=== PATIENT | female | born 1955 | race Caucasian/White ===

== ENCOUNTER 2024-01-22 09:07 | Inpatient (IN) ==
--- NOTE | 2024-01-22 09:36 | Emergency Department Note ---
Impression & Plan Hypoxia, Takotsubo cardiomyopathy, Tachycardia, SOB (shortness of breath), Elevated troponin, Elevated brain natriuretic peptide (BNP) level ED Provider Note NAME: AIDEN AVINA AGE: 69 SEX: F : 1955 ARRIVES VIA: Walk-In INFORMANT: [Patient] ED PROVIDER(S): [Shun Mckenzie MD] CHIEF COMPLAINT: Short of breath HISTORY OF PRESENT ILLNESS: The patient is a 69-year-old female who flew from [place] yesterday. She is here for a . The patient states that last night, she began having some shortness of breath. She became more short of breath as the morning went on and noticed some left pleuritic chest discomfort. The patient has had some burning in her chest for a month. She attributes this to sinus congestion. She states that she would notice it mostly when she would lay down at nighttime. She has had a cough as well. Coughing seemed to make the left chest pain worse today. The patient has a history of an abnormal ECG although, she was told that she never had a heart attack. She has no diagnosed lung disease. No history of PE or DVT. The patient has had pleurisy before and she states that the left chest pain feels similar to her previous pleurisy diagnosis. She tried some Tylenol with minimal relief. PMHx/PSHx/Social Hx: See Below PHYSICAL EXAM: GENERAL: Patient is in mild respiratory distress. HEENT: No acute trauma, normocephalic atraumatic, mucous membranes moist, no nasal congestion. NECK: No stridor, no adenopathy, no meningismus, trachea is midline. LUNGS: Diminished breath sounds bilaterally, especially on the right. She has an increased respiratory rate and does seem in some mild respiratory distress. She does speak in some short sentences. Chest: Nontender chest wall. HEART: Tachycardic, no obvious murmur, regular rhythm. ABDOMEN: Soft, nontender, no peritonitis. EXTREMITIES: No cyanosis, full range of motion of all the joints without pain or difficulty. NEUROLOGIC: Oriented x 3, no acute motor or sensory deficits, no focal weakness. SKIN: No jaundice, no diaphoresis. DIFFERENTIAL DIAGNOSIS: PE, pneumonia, [place], dysrhythmia, pneumothorax, CHF, viral illness, among others. EMERGENCY DEPARTMENT PROCEDURES: MEDICAL DECISION MAKING: There is a mild leukocytosis, this is consistent with potential infection. There was a normal hemoglobin and platelet count. No coagulopathy. No renal failure or significant electrolyte abnormality. Lactic acid level was not elevated making severe sepsis less likely. There were some subtle liver enzyme elevations, the bilirubin was normal. BNP was elevated consistent with fluid overload. Chest x-ray showed what appeared to be a right lower lung infiltrate. ECG showed sinus tachycardia with inverted T waves across the inferior and lateral leads concerning for ischemia although there was no ST elevation. Cardiac troponin testing was elevated at over 2000. This troponin elevation is certainly consistent with cardiac injury. Chest CT did not show PE, there were some small pleural effusions seen. There was concerns for CHF. Cardiac echo showed findings of Takotsubo cardiomyopathy. EF was around 30%. The patient presented hypoxic. She was tachycardic. She was aggressively managed. I was initially concerned for pneumonia given her presentation and x- ray findings. The patient was given IV saline, she received a total of 700 cc. She had been ordered for 1 L however, I had the fluid stopped at around 700cc once the concerns for CHF were noted. The patient was given IV cefepime as antibiotic coverage. She was given IV Toradol and IV Zofran. She eventually received 1 inch of nitroglycerin paste. She was given 20 mg of IV Lasix to help with diuresis. She received a DuoNeb. The patient is still requiring supplemental O2. She did feel better after her DuoNeb. It does appear that the findings of Takotsubo cardiomyopathy explains the majority of her presentation. Certainly, pneumonia/bronchitis given her respiratory complaints is an additional concern. I spoke with the patient and her . I spoke with on-call cardiology, I did speak with case management. The on-call hospitalist was consulted. Admission is clearly warranted. Prior/Outside records/notes reviewed: None ECG per my interpretation: Indication was shortness of breath. The ECG shows a sinus tachycardia with a rate of 117. 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 There are inverted T waves seen across the inferior and lateral leads. There is no ST elevation. No PVCs. The QTc is 488. Continuous Cardiac Monitoring per my interpretation: An order was placed for continuous cardiac monitoring. The monitor shows a rate of 116 with sinus tachycardia. Imaging/x-ray results per my interpretation: Chest x-ray shows a right lower lung consolidation consistent with possible pneumonia. There was no pneumothorax. Chronic Medical/Social conditions affecting care: History of previous abnormal ECG as well as diagnosis of pleurisy. Care/Management discussed with: Cardiology on-call-Dr. Abreu. Case management and the on-call hospitalist. Level of care consideration(s): After review of the information above and other included data: --I believe the patient requires escalation of care to admission Critical Care Note: I have personally spent 63 minutes of critical care time in the direct management of this patient. This includes bedside care, interpretation of diagnostic studies, and testing, discussion with consultants, patient, and family members, and other required patient management activities. This 63 minutes is in excess of all separately billable procedures. DISPOSITION: Admission Past Med/Surg History Problem List (Updated 01/22/24 @ 14:22 by Shun Mckenzie MD) Elevated brain natriuretic peptide (BNP) level (Acute) Elevated troponin (Acute) SOB (shortness of breath) (Acute) Tachycardia (Acute) Takotsubo cardiomyopathy (Acute) Hypoxia (Acute) Heart failure Pneumonia Takotsubo cardiomyopathy Acute hypoxic respiratory failure Medical History Hypertension Social History Smoking Status: Current every day smoker Tobacco Type: Cigarettes Feels Safe at Home: Yes Home Meds Home Medications Medication Instructions Recorded Confirmed amlodipine 2.5 mg tablet 2.5 mg PO DAILY 01/22/24 01/22/24 celecoxib 200 mg capsule 200 mg PO DAILY 01/22/24 01/22/24 Results & Data (ED) Vital Signs Vital Signs - 24 hr 01/22/24 09:08 01/22/24 09:15 01/22/24 09:19 Temperature 36.5 C Temperature Source Temporal Artery Scan Pulse Rate 114 H Pulse Rate [Apical] Respiratory Rate 18 Respiratory Effort / Characteristics Spontaneous Short of Breath Non-Labored Spontaneous Respiratory Depth Shallow Normal Blood Pressure 145/88 H Blood Pressure [Right Arm] Blood Pressure Mean 107 Blood Pressure Mean [Right Arm] Pulse Oximetry 87 L Oxygen Delivery Method Nasal Cannula Room Air Room Air Oxygen Flow Rate 2 Sepsis Recent Fever Within 48 Hours No Sepsis New/Unexplained Change in Mental Status No Sepsis Action Taken by Nursing No Action Required 08/17/24 09:24 01/22/24 09:33 01/22/24 09:46 Temperature Temperature Source Pulse Rate 118 H 113 H 107 H Pulse Rate [Apical] Respiratory Rate 23 29 H Respiratory Effort / Characteristics Respiratory Depth Blood Pressure Blood Pressure [Right Arm] Blood Pressure Mean Blood Pressure Mean [Right Arm] Pulse Oximetry Oxygen Delivery Method Oxygen Flow Rate Sepsis Recent Fever Within 48 Hours Sepsis New/Unexplained Change in Mental Status Sepsis Action Taken by Nursing 01/22/24 09:51 01/22/24 10:16 01/22/24 10:30 Temperature Temperature Source Pulse Rate 107 H 98 H Pulse Rate [Apical] Respiratory Rate 26 H 16 Respiratory Effort / Characteristics Respiratory Depth Blood Pressure 146/105 H 133/90 Blood Pressure [Right Arm] Blood Pressure Mean 127 104 Blood Pressure Mean [Right Arm] Pulse Oximetry 99 Oxygen Delivery Method Oxygen Flow Rate Sepsis Recent Fever Within 48 Hours Sepsis New/Unexplained Change in Mental Status Sepsis Action Taken by Nursing 01/22/24 11:08 Temperature Temperature Source Pulse Rate Pulse Rate [Apical] 105 H Respiratory Rate 18 Respiratory Effort / Characteristics Non-Labored Spontaneous Respiratory Depth Normal Blood Pressure Blood Pressure [Right Arm] 136/89 Blood Pressure Mean Blood Pressure Mean [Right Arm] 104 Pulse Oximetry 93 Oxygen Delivery Method Oxymask Oxygen Flow Rate 6 Sepsis Recent Fever Within 48 Hours Sepsis New/Unexplained Change in Mental Status Sepsis Action Taken by Long Term Medications Current Medication List: was personally reviewed by me Laboratory Data Attestation: I reviewed the patient's lab results. 01/22/24 09:56 01/22/24 09:56 Lab Results 01/22/24 01/22/24 01/22/24 Range/Units 09:51 09:56 09:59 WBC 12.73 H (4.8-10.8) K/ul RBC 4.35 (4.20-5.40) M/uL Hgb 14.9 (12.0-16.0) g/dl POC Hgb 15.6 (12.0-16.0) g/dl Hct 42.9 (37.0-47.0) % POC Hct 46 (37-47) % MCV 98.6 (80.0-100.0) fL MCH 34.3 H (25.0-34.0) pg MCHC 34.7 (32.0-36.0) g/dL RDW Std Deviation 45.8 (36.4-46.3) fL RDW Coeff of Shira 12.6 (11.5-14.5) % Plt Count 187 (130-400) K/uL MPV 12.1 (9.4-12.4) fL Immature Gran % (Auto) 0.3 % Neut % (Auto) 82.0 % Lymph % (Auto) 10.7 % [place] % (Auto) 6.1 % Eos % (Auto) 0.4 % Baso % (Auto) 0.5 % Neut # (Auto) 10.43 H (1.40-6.50) K/uL Lymph # (Auto) 1.36 (1.20-3.40) K/uL [place] # (Auto) 0.78 H (0.11-0.59) K/uL Eos # (Auto) 0.05 (0.00-0.50) K/uL Baso # (Auto) 0.07 (0.00-0.20) K/uL Immature Gran # (Auto) 0.04 (0.01-0.20) K/uL PT 10.2 (9.0-12.0) Seconds INR 0.9 (0.9-1.1) APTT 23 (21-31) Seconds PTT Ratio 0.9 POC Sodium 141 (135-144) mmol/L Sodium 140 (136-145) mmol/L POC Potassium 3.7 (3.3-5.0) mmol/L Potassium 3.8 (3.5-5.1) mmol/L POC Chloride 107 (101-112) mmol/L Chloride 106 (98-107) mmol/L Carbon Dioxide 24 (21-32) mmol/L POC Total CO2 23 L (24-31) mmol/L Anion Gap 10 (3-11) POC Anion Gap 16.0 (16-25) mmol/L POC BUN 13 (7-18) mg/dl BUN 14 (6-23) mg/dl Creatinine 0.52 L (0.6-1.2) mg/dl POC Creatinine 0.5 L (0.6-1.3) mg/dl Est Cr Clr Drug Dosing 92.5 ml/min Est GFR ( Amer) 114.6 ml/min Est GFR (Non-Af Amer) 98.9 ml/min BUN/Creatinine Ratio 26.9 H (10-20) Glucose 136 H (70-99(Fasting)) mg/dl POC Glucose (other) 134 H (70-99) mg/dl Lactate 1.9 (0.4-2.0) mmol/L Calcium 9.3 (8.6-10.3) mg/dl POC Ioniz Calcium Em[place] 1.12 (1.12-1.32) mmol/l Magnesium 1.9 (1.7-2.4) mg/dl Total Bilirubin 0.7 (0.2-1.0) mg/dl AST 86 H (13-39) U/L ALT 65 H (7-52) U/L Alkaline Phosphatase 97 (34-104) U/L Troponin I High Sens 2695.3 H* (0-14) pg/ml B-Natriuretic Peptide 1115 H (0-100) pg/ml Total Protein 7.3 (6.0-8.3) gm/dl Albumin 4.9 (3.4-5.0) gm/dl Globulin 2.4 L (2.5-4.0) gm/dl Albumin/Globulin Ratio 2.0 (0.9-2) Adenovirus (PCR) Not Detected (NotDetected) B. pertussis DNA (PCR) Not Detected (NotDetected) B.parapertussis DNA PCR Not Detected (NotDetected) C. pneumoniae DNA (PCR) Not Detected (NotDetected) Coronavirus OC43 (PCR) Not Detected (NotDetected) Coronavirus HKU1 (PCR) Not Detected (NotDetected) Coronavirus 229E (PCR) Not Detected (NotDetected) SARS-CoV-2 (PCR) Not Detected (NotDetected) Coronavirus NL63 (PCR) Not Detected (NotDetected) Human Metapneumovir PCR Not Detected (NotDetected) Influenza Type A (PCR) Not Detected (NotDetected) Influenza Type B (PCR) Not Detected (NotDetected) M. pneumoniae (PCR) Not Detected (NotDetected) Parainfluenza 1 (PCR) Not Detected (NotDetected) Parainfluenza 2 (PCR) Not Detected (NotDetected) Parainfluenza 3 (PCR) Not Detected (NotDetected) Parainfluenza 4 (PCR) Not Detected (NotDetected) RSV (PCR) Not Detected (NotDetected) Entero/Rhino (PCR) Not Detected (NotDetected) 01/22/24 Range/Units 12:02 WBC (4.8-10.8) K/ul RBC (4.20-5.40) M/uL Hgb (12.0-16.0) g/dl POC Hgb (12.0-16.0) g/dl Hct (37.0-47.0) % POC Hct (37-47) % MCV (80.0-100.0) fL MCH (25.0-34.0) pg MCHC (32.0-36.0) g/dL RDW Std Deviation (36.4-46.3) fL RDW Coeff of Shira (11.5-14.5) % Plt Count (130-400) K/uL MPV (9.4-12.4) fL Immature Gran % (Auto) % Neut % (Auto) % Lymph % (Auto) % [place] % (Auto) % Eos % (Auto) % Baso % (Auto) % Neut # (Auto) (1.40-6.50) K/uL Lymph # (Auto) (1.20-3.40) K/uL [place] # (Auto) (0.11-0.59) K/uL Eos # (Auto) (0.00-0.50) K/uL Baso # (Auto) (0.00-0.20) K/uL Immature Gran # (Auto) (0.01-0.20) K/uL PT (9.0-12.0) Seconds INR (0.9-1.1) APTT (21-31) Seconds PTT Ratio POC Sodium (135-144) mmol/L Sodium (136-145) mmol/L POC Potassium (3.3-5.0) mmol/L Potassium (3.5-5.1) mmol/L POC Chloride (101-112) mmol/L Chloride (98-107) mmol/L Carbon Dioxide (21-32) mmol/L POC Total CO2 (24-31) mmol/L Anion Gap (3-11) POC Anion Gap (16-25) mmol/L POC BUN (7-18) mg/dl BUN (6-23) mg/dl Creatinine (0.6-1.2) mg/dl POC Creatinine (0.6-1.3) mg/dl Est Cr Clr Drug Dosing ml/min Est GFR ( Amer) ml/min Est GFR (Non-Af Amer) ml/min BUN/Creatinine Ratio (10-20) Glucose (70-99(Fasting)) mg/dl POC Glucose (other) (70-99) mg/dl Lactate (0.4-2.0) mmol/L Calcium (8.6-10.3) mg/dl POC Ioniz Calcium [place] (1.12-1.32) mmol/l Magnesium (1.7-2.4) mg/dl Total Bilirubin (0.2-1.0) mg/dl AST (13-39) U/L ALT (7-52) U/L Alkaline Phosphatase (34-104) U/L Troponin I High Sens 3776.9 H* D (0-14) pg/ml B-Natriuretic Peptide (0-100) pg/ml Total Protein (6.0-8.3) gm/dl Albumin (3.4-5.0) gm/dl Globulin (2.5-4.0) gm/dl Albumin/Globulin Ratio (0.9-2) Adenovirus (PCR) (NotDetected) B. pertussis DNA (PCR) (NotDetected) B.parapertussis DNA PCR (NotDetected) C. pneumoniae DNA (PCR) (NotDetected) Coronavirus OC43 (PCR) (NotDetected) Coronavirus HKU1 (PCR) (NotDetected) Coronavirus 229E (PCR) (NotDetected) SARS-CoV-2 (PCR) (NotDetected) Coronavirus NL63 (PCR) (NotDetected) Human Metapneumovir PCR (NotDetected) Influenza Type A (PCR) (NotDetected) Influenza Type B (PCR) (NotDetected) M. pneumoniae (PCR) (NotDetected) Parainfluenza 1 (PCR) (NotDetected) Parainfluenza 2 (PCR) (NotDetected) Parainfluenza 3 (PCR) (NotDetected) Parainfluenza 4 (PCR) (NotDetected) RSV (PCR) (NotDetected) Entero/Rhino (PCR) (NotDetected) Administered Medications Heparin Sodium/Dextrose (Heparin Sodium/Dextrose) 25,000 units in 500 mls @ 13 mls/hr IV .Q24H [facility] [place]; Protocol Stop: 02/21/24 13:44 Last Admin: 01/22/24 13:49 Dose: 650 units/hr, 13 mls/hr Documented By: MTN Co-signed By: KAYLA Discontinued Medications Albuterol (Albut/Ipratrop 3mg/0.5mg Neb 3 Ml Vial) 3 ml NEB NOW STA; Protocol Stop: 01/22/24 09:32 Last Admin: 01/22/24 10:26 Dose: 3 ml Documented By: CEF Aspirin (Aspirin Chew 324 Mg) 324 mg PO NOW STA Stop: 01/22/24 11:45 Last Admin: 01/22/24 11:55 Dose: 324 mg Documented By: MH Furosemide (Furosemide Inj 20 Mg/2 Ml Vial) 20 mg IV ONE ONE Stop: 01/22/24 10:55 Last Admin: 01/22/24 11:02 Dose: 20 mg Documented By: CEF Heparin Sodium (Porcine) (Heparin Sod (Porcine) 1000 Unit/Ml) 3,000 units IV NOW ONE Stop: 01/22/24 13:46 Last Admin: 01/22/24 13:49 Dose: 3,000 units Documented By: JESSE Co-signed By: KAYLA Sodium Chloride (Nss) 1,000 mls @ 999 mls/hr IV .Q1H1M ONE Stop: 01/22/24 10:38 Last Infusion: 01/22/24 10:54 Dose: Infused Documented By: Admin: 01/22/24 10:24 Dose: 999 mls/hr Documented By: CEF Cefepime HCl (Maxipime) 2,000 mg in 20 mls @ 5 mls/min IV NOW STA; Protocol Stop: 01/22/24 09:42 Last Admin: 01/22/24 10:20 Dose: 5 mls/min Documented By: CEF Ioversol (Optiray 320 125ml) 118 ml IV ONCE ONE Stop: 01/22/24 10:09 Last Admin: 01/22/24 10:09 Dose: 118 ml Documented By: RUBINA Ketorolac Tromethamine (Ketorolac Tromethamine 15 Mg/Ml Vial) 15 mg IV NOW STA Stop: 01/22/24 10:13 Last Admin: 01/22/24 10:28 Dose: 15 mg Documented By: CEF Nitroglycerin (Nitroglycerin 2% Ointment 30gm Tube) 1 inch EXT NOW STA Stop: 01/22/24 10:55 Last Admin: 01/22/24 11:00 Dose: 1 inch Documented By: CEF Ondansetron HCl (Ondansetron Inj 2 Mg/Ml 2 Ml Vial) 4 mg IV NOW STA Stop: 01/22/24 09:32 Last Admin: 01/22/24 10:15 Dose: 4 mg Documented By: CEF Imaging Data Radiologist's Impression: Chest X-Ray 01/22/24 09:19 SINGLE VIEW CHEST CLINICAL HISTORY: Dyspnea FINDINGS: An AP, portable, upright chest radiograph is obtained. No prior studies are available for comparison at the time of dictation. The heart is enlarged noting atherosclerotic calcification of the thoracic aorta. There is pulmonary vascular congestion. There are small pleural effusions with dependent atelectasis. Emphysematous change is noted. No pneumothorax is seen. The bony thorax is grossly intact. A left shoulder arthroplasty is in place. IMPRESSION: 1. Cardiomegaly with evidence of congestive failure. 2. Small pleural effusions. 3. Emphysema. ACT 112: Negative or not required by law. Electronically signed by: Shun Wilkinson M.D. 01/22/2024 10:41 AM Chest CTA 01/22/24 09:31 CT ANGIOGRAM OF THE CHEST CLINICAL HISTORY: Dyspnea COMPARISON STUDY: Chest x-ray dated 01/22/2024. TECHNIQUE: Following the IV administration of 118 cc of Optiray 320, CT angiogram of the chest was performed from the upper abdomen to the thoracic inlet utilizing the pulmonary embolus protocol. Images are reviewed in the axial, sagittal, and coronal planes. 3-D MIPS images are created and assessed. IV contrast was administered without complication. A dose lowering technique was utilized adhering to the principles of ALARA. CT DOSE: 518.68 mGy.cm FINDINGS: Thyroid: Imaged portions of the thyroid gland are normal in size and attenuation. Thoracic aorta: There is atherosclerotic calcification of the thoracic aorta, which is normal in caliber and demonstrates standard 3-vessel arch anatomy. The thoracic aorta is not well-opacified. Pulmonary vasculature: The pulmonary trunk is normal in caliber. There are no filling defects identified in main, lobar, or segmental pulmonary branches to suggest pulmonary embolus. Heart: The heart is mildly enlarged and without pericardial effusion. There is coronary artery atherosclerosis. Lungs and pleural spaces: Evaluation of the lung parenchyma is degraded by motion artifact. Moderate emphysematous change is noted. Diffuse intralobular septal thickening indicates fluid overload/congestive change. There are small pleural effusions with dependent atelectasis. Patchy groundglass opacities likely represent mild pulmonary edema. Mediastinum: There is no mediastinal lymphadenopathy. Monica: Clear. Axillae: There is no axillary lymphadenopathy. Upper abdomen: Inframalleolar nonobstructing calculus is in the upper pole of the left kidney. Partially visualized upper abdominal viscera is otherwise within normal limits. Skeletal structures: The skeletal structures are osteopenic. Degenerative change and hyperkyphosis is noted in the thoracic spine. Arthritic change is seen in the right shoulder. A left shoulder arthroplasty is in place. No lytic or blastic bony lesions are seen. IMPRESSION: 1. There is no evidence of pulmonary embolus in the main, lobar, or segmental pulmonary arteries. 2. Cardiomegaly with evidence of congestive failure and mild pulmonary edema. Radiographic follow-up to resolution is recommended. 3. Emphysema. 4. Small pleural effusions. 5. Left-sided nephrolithiasis. 6. Additional findings as above. ACT 112: Negative or not required by law. Electronically signed by: Shun Wilkinson M.D. 01/22/2024 10:42 AM Discharge Plan Visit Data Chief Complaint: Cardiac Assessment Stated Complaint: SHORTNESS OF BREATH, CHEST PAIN ED Provider: Shun Mckenzie Discharge Problem: Hypoxia, Takotsubo cardiomyopathy, Tachycardia, SOB (shortness of breath), Elevated troponin, Elevated brain natriuretic peptide (BNP) level Patient Disposition: Admitted As Inpatient Condition: Serious Discharge Instructions Interventions: ED Discharge Assessment Last Done: 01/22/24 12:51
[2024-01-22 10:08] LABS: iSTAT Creatinine 0.5 mg/dl (0.6-1.3); iSTAT Hemoglobin 15.6 g/dl (12.0-16.0); iSTAT Ionized Calcium 1.12 mmol/l (1.12-1.32); iSTAT Potassium 3.7 mmol/L (3.3-5.0)
[2024-01-22] MEDS: OPTIRAY 320 125ml IV ONE (10:09)
[2024-01-22 10:13] LABS: Basophils # (auto) 0.07 K/uL (0.00-0.20); Basophils % (auto) 0.5 %; Eosinophils # (auto) 0.05 K/uL (0.00-0.50); Eosinophils % (auto) 0.4 %; Hematocrit (blood only) 42.9 % (37.0-47.0); Hemoglobin 14.9 g/dl (12.0-16.0); Immature Granulocytes # (auto) 0.04 K/uL (0.01-0.20); Immature Granulocytes % (auto) 0.3 %; Lymphocytes # (auto) 1.36 K/uL (1.20-3.40); Lymphocytes % (auto) 10.7 %; Mean Corpuscular Hemoglobin 34.3 pg (25.0-34.0); Mean Corpuscular Hgb Conc 34.7 g/dL (32.0-36.0); Mean Corpuscular Volume 98.6 fL (80.0-100.0); Mean Platelet Volume 12.1 fL (9.4-12.4); Monocytes # (auto) 0.78 K/uL (0.11-0.59); Monocytes % (auto) 6.1 %; Neutrophils # (auto) 10.43 K/uL (1.40-6.50); Platelet Count 187 K/uL (130-400); RDW Coefficient of Variation 12.6 % (11.5-14.5); RDW Standard Deviation 45.8 fL (36.4-46.3); Red Blood Count 4.35 M/uL (4.20-5.40); White Blood Count 12.73 K/ul (4.8-10.8)
[2024-01-22] MEDS: ONDANSETRON INJ 2 MG/ML 2 ML VIAL IV STA (10:15)
[2024-01-22] MEDS: CEFEPIME 2,000 MG/20 ML VIAL IV STA (10:20)
[2024-01-22] MEDS: SODIUM CHLORIDE 0.9% 1,000 ML IV ONE (10:24)
[2024-01-22] MEDS: ALBUT/IPRATROP 3MG/0.5MG NEB 3 ML VIAL NEB STA (10:26)
[2024-01-22] MEDS: KETOROLAC TROMETHAMINE 15 MG/ML VIAL IV STA (10:28)
[2024-01-22 10:30] LABS: Albumin Level 4.9 gm/dl (3.4-5.0); BUN Creatinine Ratio 26.9 (10-20); Bilirubin,Total 0.7 mg/dl (0.2-1.0); Calcium 9.3 mg/dl (8.6-10.3); Creatinine Clr Calc Pharmacy 92.5 ml/min; Est GFR (African American) 114.6 ml/min; Est GFR (Non-African American) 98.9 ml/min; Globulin 2.4 gm/dl (2.5-4.0); Magnesium 1.9 mg/dl (1.7-2.4); Potassium 3.8 mmol/L (3.5-5.1); Total Protein 7.3 gm/dl (6.0-8.3)
[2024-01-22 10:39] LABS: INR 0.9 (0.9-1.1); Partial Thromboplastin Ratio 0.9; Partial Thromboplastin Time 23 Seconds (21-31); Prothrombin Time 10.2 Seconds (9.0-12.0)
--- NOTE | 2024-01-22 10:43 | CT Scan Report ---
CT ANGIOGRAM OF THE CHEST CLINICAL HISTORY: Dyspnea COMPARISON STUDY: Chest x-ray dated 01/22/2024. TECHNIQUE: Following the IV administration of 118 cc of Optiray 320, CT angiogram of the chest was pe rformed from the upper abdomen to the thoracic inlet utilizing the pulmonary embolus protocol. Images are reviewed in the axial, sagittal, and coronal planes. 3-D MIPS images are created and assessed. I V contrast was administered without complication. A dose lowering technique was utilized adhering to the principles of ALARA. CT DOSE: 518.68 mGy.cm FINDINGS: Thyroid: Imaged portions of the thyroid gland are normal in size and attenuation. Thoracic aorta: There is atherosclerotic calcification of the thoracic aorta, which is normal in taz elza and demonstrates standard 3-vessel arch anatomy. The thoracic aorta is not well-opacified. Pulmonary vasculature: The pulmonary trunk is normal in caliber. There are no filling defects identif ied in main, lobar, or segmental pulmonary branches to suggest pulmonary embolus. Heart: The heart is mildly enlarged and without pericardial effusion. There is coronary artery athero sclerosis. Lungs and pleural spaces: Evaluation of the lung parenchyma is degraded by motion artifact. Moderate emphysematous change is noted. Diffuse intralobular septal thickening indicates fluid overload/conges tive change. There are small pleural effusions with dependent atelectasis. Patchy groundglass opaciti es likely represent mild pulmonary edema. Mediastinum: There is no mediastinal lymphadenopathy. Monica: Clear. Axillae: There is no axillary lymphadenopathy. Upper abdomen: Inframalleolar nonobstructing calculus is in the upper pole of the left kidney. Partia lly visualized upper abdominal viscera is otherwise within normal limits. Skeletal structures: The skeletal structures are osteopenic. Degenerative change and hyperkyphosis is noted in the thoracic spine. Arthritic change is seen in the right shoulder. A left shoulder arthrop lasty is in place. No lytic or blastic bony lesions are seen. IMPRESSION: 1. There is no evidence of pulmonary embolus in the main, lobar, or segmental pulmonary arteries. 2. Cardiomegaly with evidence of congestive failure and mild pulmonary edema. Radiographic follow-up to resolution is recommended. 3. Emphysema. 4. Small pleural effusions. 5. Left-sided nephrolithiasis. 6. Additional findings as above. ACT 112: Negative or not required by law. Electronically signed by: Shun Wilkinson M.D. 01/22/2024 10:42 AM
--- NOTE | 2024-01-22 10:43 | XRay Report ---
SINGLE VIEW CHEST CLINICAL HISTORY: Dyspnea FINDINGS: An AP, portable, upright chest radiograph is obtained. No prior studies are available for c omparison at the time of dictation. The heart is enlarged noting atherosclerotic calcification of the thoracic aorta. There is pulmonary vascular congestion. There are small pleural effusions with depen dent atelectasis. Emphysematous change is noted. No pneumothorax is seen. The bony thorax is grossly intact. A left shoulder arthroplasty is in place. IMPRESSION: 1. Cardiomegaly with evidence of congestive failure. 2. Small pleural effusions. 3. Emphysema. ACT 112: Negative or not required by law. Electronically signed by: Shun Wilkinson M.D. 01/22/2024 10:41 AM
[2024-01-22 10:54] LABS: Adenovirus PCR Not Detected (NotDetected); Bordetella parapertussis PCR Not Detected (NotDetected); Bordetella pertussis PCR Not Detected (NotDetected); Chlamydia pneumoniae PCR Not Detected (NotDetected); Coronavirus 229E PCR Not Detected (NotDetected); Coronavirus CoV-2 (COVID19)PCR Not Detected (NotDetected); Coronavirus HKU1 PCR Not Detected (NotDetected); Coronavirus NL63 PCR Not Detected (NotDetected); Coronavirus OC43PCR Not Detected (NotDetected); Human Metapneumovirus PCR Not Detected (NotDetected); Influenza A PCR Not Detected (NotDetected); Influenza B PCR Not Detected (NotDetected); Mycoplasma pneumoniae PCR Not Detected (NotDetected); Parainfluenza Virus 1 PCR Not Detected (NotDetected); Parainfluenza Virus 2 PCR Not Detected (NotDetected); Parainfluenza Virus 3 PCR Not Detected (NotDetected); Parainfluenza Virus 4 PCR Not Detected (NotDetected); Respiratory Syncytial VirusPCR Not Detected (NotDetected); Rhinovirus/Enterovirus PCR Not Detected (NotDetected)
--- NOTE | 2024-01-22 10:58 | History & Physical Report ---
Date of Service January 22, 2024 Assessment & Plan (1) Takotsubo cardiomyopathy: Plan: Acute onset of SOB at rest, pleuritic CP, productive cough, and orthopnea on the evening of 01/20 Patient is from [place], [place]; currently visiting for her sister's ; flew in on 01/20 Chest CTA without acute pulmonary embolism Troponin 2695 on arrival, repeat pending; trend q6h to peak Aspirin 324mg and Nitropaste given in the ED Overall, patient paints a picture of both infectious etiology + acute heart failure DDx at this time includes Takotsubo's cardiomyopathy, pericarditis, ACS, ischemic event, acute CHF, ACS, and pneumonia (among other etiologies) While pericarditis is still in the differential, will defer NSAIDs until ischemic event is ruled out Cardiology consulted If patient's troponin continues to trend up, will need to consider IV heparin Continuous telemetry monitoring A.m. CBC, CMP, fasting lipid panel (2) Heart failure: Plan: BNP 1115 on arrival No prior history of heart failure to patient's knowledge Chest CTA shows evidence of congestive failure and pulmonary edema Echocardiogram ordered, pending Strict I&O monitoring Heart healthy, low-sodium diet (1800 mL fluid restriction) Started on Lasix 40 mg IV QAM (3) Acute hypoxic respiratory failure: Plan: Patient's SpO2 dropped to 87% on RA Suspect secondary to #2 Titrate supplemental oxygen as needed to maintain SpO2 >94% Continuous pulse oximetry (4) Pneumonia: Plan: Productive cough began the evening of 01/20 Leukocytosis at 12.73 with a neutrophil predominance CXR may exhibit infiltrate on the RLL BioFire negative Procalcitonin ordered, pending Sputum culture ordered, pending Blood cultures drawn Cefepime x 1 in the ED Rocephin 2000 mg IV q24h Azithromycin 500 mg IV q24h Continuous pulse oximetry Plan Disposition: Admit to PCU telemetry Full code Heart healthy, low-sodium diet (1800 mL fluid restriction) VTE PPx: Heparin IV low-dose with bolus History of Present Illness Chief Complaint: Cardiac Assessment Primary Care Provider: NO PCP Ailin is a 69-year-old female with PMH of right shoulder replacement. She presented for SOB that began the evening of 01/20. She had a 2-hour flight yesterday and reports that her "sinuses are a mess", and that she lives in [facility]. She is here for her sister's . Patient developed acute onset of shortness of breath last night while laying in bed around midnight. She experienced SOB both at rest and with exertion. SOB was worse when she lay flat on her back. Alleviated by standing up and leaning forward. Patient has had sinus congestion over the past month, and reports that last night she felt like her bronchial tubes were "on fire". No history of heart failure to her knowledge. While she denies chest pain at this time, she does endorse pleuritic chest pain and reports it hurts to cough. She also endorses left lower rib pain, which is reproducible on palpation and she attributes it to the cough. She did started develop diarrhea last night; no blood in her stool. The stool is somewhat formed; not liquidy. She is still producing urine. She has new onset lower back pain x 2 weeks. No sick contacts. No supplemental oxygen at baseline. No CPAP at night. She is a current everyday tobacco cigarette smoker; 0.5 PPD. She declines nicotine patch on admission. No history of COPD, asthma, or emphysema to her knowledge. She does endorse daily alcohol use; 2 glasses of wine per day. No history of alcohol withdrawal or seizures. No PMH of UT, DVT/PE, stroke, or diabetes. The only medication she takes on the basis is amlodipine for blood pressure, and occasionally Celebrex for her shoulder. Patient does believe that she had an EKG change while at home in [place], but it is unclear why this was called an abnormal EKG; patient's PCP might of mentioned that she had a heart attack in the past. She follows with Sand[facility]. Regarding her penicillin allergy, she is unsure what happens when she takes penicillins; she denies history of anaphylaxis, hives, or throat closure; she believes it might have led to a rash and some arm swelling. Patient is tachycardic around 105 bpm on admission; SpO2 93% on 6L Oxymask. ED Course: Duoneb 3mL Zofran 4mg IV NSS 1000mL IV Cefepime 2000mg IV Toradol 15mg IV Nitro-Bid 2% ext Furosemide 20mg IV ROS: Patient endorses acute onset of SOB at rest and with exertion, chest palpitations (which patient associated with difficulty breathing), productive cough (green phlegm), generalized weakness, sinus congestion, orthopnea, nausea, diarrhea (which started last night), and new lower back pain x 2 weeks. Patient denies fever, chills, night-sweats, dizziness, lightheadedness, MUNIZ, vomiting, neck stiffness/pain, photophobia, changes in vision, chest pain/pressure/tightness, hemoptysis, abdominal pain, vomiting, blood in the urine/stool, dysuria, changes in urinary production, or numbness/tingling in the arms or legs. Allergies Allergy/AdvReac Type Severity Reaction Status Date / Time Penicillins Allergy Unknown Unknown Verified 01/22/24 15:18 Home Medications Medication Instructions Recorded Confirmed Type amlodipine 2.5 mg tablet 2.5 mg PO DAILY 01/22/24 01/22/24 History celecoxib 200 mg capsule 200 mg PO DAILY 01/22/24 01/22/24 History Past Med/Surg History Problem List (Updated 01/22/24 @ 15:43 by Lester Abreu MD) Moderate to severe mitral regurgitation COPD (chronic obstructive pulmonary disease) Acute HFrEF (heart failure with reduced ejection fraction) Elevated brain natriuretic peptide (BNP) level (Acute) Elevated troponin (Acute) SOB (shortness of breath) (Acute) Tachycardia (Acute) Takotsubo cardiomyopathy (Acute) Hypoxia (Acute) Heart failure Pneumonia Takotsubo cardiomyopathy Acute hypoxic respiratory failure Medical History Hypertension Social History Smoking Status: Current every day smoker Tobacco Type: Cigarettes Do You Dip or Chew Tobacco: No; Hx Alcohol Use: Yes Alcohol type: wine Hx Substance Use: No Preferred Language: Polish Communication Ability: Effective 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 Beliefs That Will Affect Care: None and Amish Current Living Situation: Spouse Feels Safe at Home: Yes Assistive Devices: Glasses Review of Systems Review of Systems: See HPI above Physical Exam Physical Exam: General: Mild respiratory distress; anxious; non-toxic appearing; well- nourished; cooperative; SpO2 94% on 4L oxy mask HEENT: normocephalic, atraumatic; no scleral icterus; PERRLA w/ EOMs intact; vision and hearing grossly intact Neck: supple; no lymphadenopathy; trachea midline; +JVP Skin: warm, dry without signs of tenting; no cyanosis; no rashes, bruising, les ions, or erythema noted CV: Mild pain to palpation of the left lower rib cage; RR, tachycardic around 100 bpm; S1/S2 normal; no murmurs/rubs/gallops; pulses intact and symmetric at radial, DP, and PT Lungs: Mild respiratory distress; symmetrical chest wall expansion; bibasilar crackles in the lower lung rae bilaterally; no wheezing ABD: Soft, NTP; BS present; no rebound/guarding; no distention; negative CVA tenderness MSK: no tics or fasciculations; no edema noted in the LEs b/l, nonerythematous Neuro: A&Ox3; normal mood and affect; fluent speech; no focal deficits; sensation grossly intact in the LEs b/l Results & Data Results & Data Vital Signs (Past 12 Hours) Vital Signs Temp Pulse Resp BP Pulse Ox O2 Del Method O2 Flow Rate 01/22/24 10:30 98 H 16 133/90 99 01/22/24 10:16 146/105 H 01/22/24 09:51 107 H 26 H 01/22/24 09:46 107 H 01/22/24 09:33 113 H 29 H 01/22/24 09:24 118 H 23 01/22/24 09:19 Room Air 01/22/24 09:15 36.5 C 114 H 18 145/88 H 87 L Room Air 01/22/24 09:08 Nasal Cannula 2 Laboratory Results Abnormal lab results 01/22/24 01/22/24 Range/Units 09:51 09:56 WBC 12.73 H (4.8-10.8) K/ul MCH 34.3 H (25.0-34.0) pg Neut # (Auto) 10.43 H (1.40-6.50) K/uL [place] # (Auto) 0.78 H (0.11-0.59) K/uL POC Total CO2 23 L (24-31) mmol/L Creatinine 0.52 L (0.6-1.2) mg/dl POC Creatinine 0.5 L (0.6-1.3) mg/dl BUN/Creatinine Ratio 26.9 H (10-20) Glucose 136 H (70-99(Fasting)) mg/dl POC Glucose (other) 134 H (70-99) mg/dl AST 86 H (13-39) U/L ALT 65 H (7-52) U/L Globulin 2.4 L (2.5-4.0) gm/dl Diagnostic Findings Chest X-Ray 01/22/24 09:19 SINGLE VIEW CHEST CLINICAL HISTORY: Dyspnea FINDINGS: An AP, portable, upright chest radiograph is obtained. No prior studies are available for comparison at the time of dictation. The heart is enlarged noting atherosclerotic calcification of the thoracic aorta. There is pulmonary vascular congestion. There are small pleural effusions with dependent atelectasis. Emphysematous change is noted. No pneumothorax is seen. The bony thorax is grossly intact. A left shoulder arthroplasty is in place. IMPRESSION: 1. Cardiomegaly with evidence of congestive failure. 2. Small pleural effusions. 3. Emphysema. ACT 112: Negative or not required by law. Electronically signed by: Shun Wilkinson M.D. 01/22/2024 10:41 AM Chest CTA 01/22/24 09:31 CT ANGIOGRAM OF THE CHEST CLINICAL HISTORY: Dyspnea COMPARISON STUDY: Chest x-ray dated 01/22/2024. TECHNIQUE: Following the IV administration of 118 cc of Optiray 320, CT angiogram of the chest was performed from the upper abdomen to the thoracic inlet utilizing the pulmonary embolus protocol. Images are reviewed in the axial, sagittal, and coronal planes. 3-D MIPS images are created and assessed. IV contrast was administered without complication. A dose lowering technique was utilized adhering to the principles of ALARA. CT DOSE: 518.68 mGy.cm FINDINGS: Thyroid: Imaged portions of the thyroid gland are normal in size and attenuation. Thoracic aorta: There is atherosclerotic calcification of the thoracic aorta, which is normal in caliber and demonstrates standard 3-vessel arch anatomy. The thoracic aorta is not well-opacified. Pulmonary vasculature: The pulmonary trunk is normal in caliber. There are no filling defects identified in main, lobar, or segmental pulmonary branches to suggest pulmonary embolus. Heart: The heart is mildly enlarged and without pericardial effusion. There is coronary artery atherosclerosis. Lungs and pleural spaces: Evaluation of the lung parenchyma is degraded by motion artifact. Moderate emphysematous change is noted. Diffuse intralobular septal thickening indicates fluid overload/congestive change. There are small pleural effusions with dependent atelectasis. Patchy groundglass opacities likely represent mild pulmonary edema. Mediastinum: There is no mediastinal lymphadenopathy. Monica: Clear. Axillae: There is no axillary lymphadenopathy. Upper abdomen: Inframalleolar nonobstructing calculus is in the upper pole of the left kidney. Partially visualized upper abdominal viscera is otherwise within normal limits. Skeletal structures: The skeletal structures are osteopenic. Degenerative change and hyperkyphosis is noted in the thoracic spine. Arthritic change is seen in the right shoulder. A left shoulder arthroplasty is in place. No lytic or blastic bony lesions are seen. IMPRESSION: 1. There is no evidence of pulmonary embolus in the main, lobar, or segmental pulmonary arteries. 2. Cardiomegaly with evidence of congestive failure and mild pulmonary edema. Radiographic follow-up to resolution is recommended. 3. Emphysema. 4. Small pleural effusions. 5. Left-sided nephrolithiasis. 6. Additional findings as above. ACT 112: Negative or not required by law. Electronically signed by: Shun Wilkinson M.D. 01/22/2024 10:42 AM ECG Additional Comments: ECG revealed sinus tachycardia at 117 bpm; QTc 488 No prior EKGs for comparison Code Status & VTE Plan Code Status Full code Supervising Physician Co-Signing Physician Notes Patient seen and examined, chart reviewed, case discussed with Gurdeep Crocker PA-C and I agree with the assessment and plan as above except as otherwise noted Labs and images reviewed 69-year-old female who presents from out of town for her sister's . Last night developed acute onset shortness of breath while laying in bed which is worse when laying flat. Also has developed chest burning/chest pain which is worse with deep breath and coughing, improves somewhat with sitting forward. No prior cardiac history. Daily smoker, history of hypertension. Reportedly with some abnormal EKG changes at home but unclear what was abnormal. Records are pending. She is disproportionately hypoxic at time of admission. Given recent travel CTA was obtained, no evidence of PEs. BNP is elevated and CTA has some pulmonary edema and bilateral pleural effusions, although disproportionate to her level of hypoxia. Bio fire is negative. She does have a leukocytosis. Has had burning in her chest intermittently which she reports has been present for months, her shortness of breath is new in the last 24 hours. She denies chest pain/burning at time of hospitalist assessment and notes that this has improved although her breathing is still limited and she remains on 6 L of oxygen. Diffuse ST abnormalities without territorial change on EKG with? Borderline ST elevation in lead III, and borderline ST depressions in lateral leads. Anteroseptal Q waves. history of grief/ with onset of CHF picture is suspicious for Takotsubo/stress cardiomyopathy. Initial troponin is elevated. Repeat troponin uptrending at 3776, heparinized. Updated by cardiology, echo returned consistent for Takotsubo's with large area of involvement and akinetic apex so while this is consistent with Takotsubo's rather than ischemic disease, still reasonable to continue heparin for reduction of LV thrombus risk. Nitropaste added for afterload reduction. MTP BID added. Appreciate recommendations and assistance with management. Lasix daily continued.Agree with above. PG Care Time/CCT Total # of Minutes Spent Total Time Spent with Patient: Total time spent is greater than 50% in coordination of care (as documented) at patient's floor/unit and/or counseling patient: [place] [address] INT INP/OBS CARE 3/75MIN Patient Type New Medical Decision Making High Complexity Diagnoses Takotsubo cardiomyopathy I51.81 Heart failure I50.9 Acute hypoxic respiratory failure J96.01 Pneumonia J18.9
[2024-01-22] MEDS: NITROGLYCERIN 2% OINTMENT 30GM TUBE EXT STA (11:00)
[2024-01-22] MEDS: FUROSEMIDE INJ 20 MG/2 ML VIAL IV ONE (11:02)
[2024-01-22 11:33] LABS: Troponin I High Sensitivity 2695.3 pg/ml (0-14)
[2024-01-22] MEDS: ASPIRIN CHEW 324 MG PO STA (11:55)
[2024-01-22] MEDS ORDERED: Heparin IV Adult Wt-Based Low-Dose w/ INITIAL Bolus Protocol IV SCH (13:21)
[2024-01-22] MEDS ORDERED: Patient's ALLERGY Info needs ENTERED SCH (13:30)
[2024-01-22] MEDS ORDERED: ONDANSETRON INJ 2 MG/ML 2 ML VIAL IV PRN (13:43)
[2024-01-22] MEDS: HEPARIN SODIUM/DEXTROSE 25,000 UNITS/500 ML BAG IV SCH (13:49)
[2024-01-22] MEDS: HEPARIN SOD (PORCINE) 1000 UNIT/ML IV ONE (13:49)
--- NOTE | 2024-01-22 14:47 | XCELERA ---
[id number]
--- NOTE | 2024-01-22 14:50 | Electrocardiogram Report ---
Test Reason : Blood Pressure : */* mmHG Vent. Rate : 117 BPM Atrial Rate : 117 BPM P-R Int : 134 ms QRS Dur : 88 ms QT Int : 350 ms P-R-T Axes : 47 52 -64 degrees QTcB Int : 488 ms Sinus tachycardia Anteroseptal infarct , age undetermined Abnormal ECG No previous ECGs available Confirmed by Lester Abreu ([id number]) on 01/22/2024 2:49:52 PM Referred By: Confirmed By: Lester Abreu
--- NOTE | 2024-01-22 15:05 | Cardiology Consultation ---
Date of Consultation January 22, 2024 Assessment & Plan (1) Acute hypoxic respiratory failure: (2) Elevated troponin: (3) Takotsubo cardiomyopathy: (4) Acute HFrEF (heart failure with reduced ejection fraction): (5) COPD (chronic obstructive pulmonary disease): (6) Moderate to severe mitral regurgitation: Plan 69-year-old woman who developed acute onset dyspnea/hypoxia with ECG and echocardiographic findings most suggestive of stress-induced cardiomyopathy (Takotsubo syndrome). However, given her vascular risk factors (tobacco use, HTN) cannot exclude conventional large anteroapical infarct with wraparound vessel, although this seems less likely given lack of significant chest pain or substantial ST changes. Agree with aspirin, IV heparin reasonable given possibility of conventional thrombus related infarct as well as to reduce the risk of apical thrombus developing given akinesis of a large area of the left ventricle. Although there was evidence of pulmonary edema and pleural effusions, she actually appears euvolemic currently, suggesting that her heart failure is secondary to reduced cardiac output with significant mitral regurgitation rather than volume overload. Reasonable to hold diuretics for now to avoid volume depletion/hypotension, low threshold for diuretic use if she becomes acutely dyspneic and has adequate blood pressure. Mainstay of treatment will be to maintain low normal blood pressure and to modestly attenuate her tachycardia (some of which may be physiologic, therefore would not be overly aggressive). Would continue topical nitrates for preload reduction/anti-ischemic effect, but only if blood pressure allows. Could introduce a small dose of beta-chavez to moderate adrenergic milieu, perhaps metoprolol tartrate 12.5 mg PO every 6 hours (hold for systolic blood pressure less than 90 mmHg or heart rate less than 80 bpm).. If blood pressure spikes, low threshold for labetalol, hydralazine, or even IV nitroglycerin infusion to avoid acute worsening of mitral regurgitation and flash pulmonary edema. Although probability favors Takotsubo, given her vascular risk factors would strongly recommend cardiac catheterization on Wednesday (sooner if decompensates) to better clarify her coronary anatomy. Will perform repeat echocardiogram tomorrow or Wednesday (depending upon his clini ryan status) to assess for improvement in LV systolic function and wall motion (which would be expected if she has Takotsubo). Will continue to follow closely. History of Present Illness Reason for Consultation: Acute CHF, elevated trop; ?Takotsubo Requesting Physician: Raffi Hernandez MD Attending Physician: Raffi Hernandez MD History of Present Illness 69-year-old woman with hypertension and tobacco use but no prior cardiac history visiting from [place] to attend her sister's , she became severely dyspneic last evening and reported to the emergency department where she was noted to be hypoxic with evidence of heart failure and an abnormal ECG as well as markedly elevated troponin, echocardiogram suggest stress-induced/Takotsubo cardiomyopathy. At recent baseline, patient reasonably active with no dyspnea exertion, chest pain, palpitations, or any other routine cardiac symptoms. She has a longstanding cigarette smoking history but no prior pulmonary diagnosis. 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 She did proceed to surgery with unremarkable perioperative course. She does note frequent "sinus fullness" at night, feels that there is some degree of drainage followed by a "burning" discomfort which occurs only when lying in bed at night. No exertional symptoms. Last evening, she became acutely dyspneic with orthopnea and PND. No specific chest pain noted at that time. ER evaluation showed mild hypertension, mild tachycardia, and initial SaO2 of 87% on room air. Initial ECG showing sinus tachycardia at 117 bpm, global T wave inversions, minimal ST elevation V2V3 suggesting possible recent anteroseptal infarct (no comparison available). Chest x-ray and CT suggested emphysema and mild pulmonary edema with small bilateral pleural effusions. Trop onin 2695 increasing to 3776. BNP elevated. Stat echocardiogram showed moderately dilated left ventricle with EF 25 to 30%, all mid to distal murphy akinetic, proximal murphy moving normally (suggestive of Takotsubo syndrome), moderate to severe mitral and moderate tricuspid regurgitation with mild pulmonary hypertension but normal IVC diameter. Of note, the patient was initially felt to be volume depleted and received IV fluids, she actually felt better. After noting heart failure there was consideration to IV diuretics but her tachycardia improved, she was no longer hypoxic, and she actually appears euvolemic. At the time of my evaluation this afternoon, she was comfortable at rest on supplemental oxygen (via facemask). No chest pain or dyspnea. Allergies Allergy/AdvReac Type Severity Reaction Status Date / Time Penicillins Allergy Unknown Unknown Verified 01/22/24 15:18 Home Medications Medication Instructions Recorded Confirmed Type amlodipine 2.5 mg tablet 2.5 mg PO DAILY 01/22/24 01/22/24 History celecoxib 200 mg capsule 200 mg PO DAILY 01/22/24 01/22/24 History Patient History Medical History Hypertension Social History Smoking Status: Current every day smoker Tobacco Type: Cigarettes Do You Dip or Chew Tobacco: No; Tobacco Cessation Education Requested by Patient: No Hx Alcohol Use: Yes Alcohol type: wine Hx Substance Use: No Preferred Language: Czech Communication Ability: Effective 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 Afebrile. BP 106/71 mmHg. Pulse 105 bpm. Respirations 19 and unlabored. Skin: no ecchymoses or generalized lesions. HEENT: unremarkable. Neck: JVP at the clavicle at 90 degrees, no carotid bruits. Lungs: Moderately decreased breath sounds with few basilar crackles, no wheezing on forced exhalation. No accessory muscle use. Cardiac: regular rhythm, normal S1-2, 3/6 holosystolic murmur heard only in the axilla, no diastolic murmur. Abdomen: benign. Extremities: no edema, pulses intact. Neurologic: normal affect and conversation, nonfocal. Results & Data Laboratory Results Initial troponin 2695, repeat 3776. Normal electrolytes, BUN 14, creatinine 0.52. BNP 1115. WBC 12.73, normal hemoglobin and platelet count. Normal PT/PTT. Viral serology negative. Diagnostic Findings ECG showed diminutive R waves in V2 and V3 with mild ST elevation suggesting recent anteroseptal infarct. Global T wave inversions noted. No prior for comparison. Chest x-ray showed cardiomegaly with evidence of congestive heart failure and small pleural effusions as well as emphysema. Chest CT showed no pulmonary embolism but did suggest congestive heart failure with mild pulmonary edema and small pleural effusions. Echocardiogram showed EF 25 to 30% with moderately dilated left ventricle, all mid to distal murphy are akinetic with remaining murphy moving normally. Noncoronary distribution highly suggestive of stress-induced cardiomyopathy (Takotsubo syndrome). Moderate to severe mitral regurgitation with moderate tricuspid regurgitation mild pulmonary hypertension. Normal IVC size. No prior study for comparison. PG Care Time/CCT Total # of Minutes Spent Total Time Spent with Patient: Total time spent is greater than 50% in coordination of care (as documented) at patient's floor/unit and/or counseling patient: Coding Level of Care Code 34567 IN/OBS CONSULT LVL 5,80M Diagnoses Acute hypoxic respiratory failure J96.01 Elevated troponin R79.89 Takotsubo cardiomyopathy I51.81 Acute HFrEF (heart failure with reduced ejection fraction) I50.21 COPD (chronic obstructive pulmonary disease) J44.9 Moderate to severe mitral regurgitation I34.0
[2024-01-22] MEDS: AZITHROMYCIN 500 MG in DEXTROSE 5% 250 ML IV STA (16:35)
[2024-01-22] MEDS: NITROGLYCERIN 2% OINTMENT 30GM TUBE EXT SCH (17:18)
[2024-01-22] MEDS: ACETAMINOPHEN 325 MG TAB PO PRN (17:38)
[2024-01-22] MEDS: cefTRIAXone SODIUM 2,000 MG/50 ML BAG IV SCH (19:19)
[2024-01-22] MEDS: METOPROLOL TARTRATE 25 MG TAB PO SCH (20:05)
[2024-01-22 20:39] LABS: ANTI-Xa, UFH(UnfractionatedHep 0.22 IU/ml (0.3-0.7)
[2024-01-22] MEDS ORDERED: METOPROLOL TARTRATE 25 MG TAB PO SCH (21:00)
[2024-01-23 02:29] LABS: Basophils # (auto) 0.05 K/uL (0.00-0.20); Basophils % (auto) 0.5 %; Eosinophils # (auto) 0.06 K/uL (0.00-0.50); Eosinophils % (auto) 0.6 %; Hematocrit (blood only) 34.9 % (37.0-47.0); Hemoglobin 11.8 g/dl (12.0-16.0); Immature Granulocytes # (auto) 0.02 K/uL (0.01-0.20); Immature Granulocytes % (auto) 0.2 %; Lymphocytes # (auto) 1.49 K/uL (1.20-3.40); Lymphocytes % (auto) 14.6 %; Mean Corpuscular Hemoglobin 33.9 pg (25.0-34.0); Mean Corpuscular Hgb Conc 33.8 g/dL (32.0-36.0); Mean Corpuscular Volume 100.3 fL (80.0-100.0); Mean Platelet Volume 12.1 fL (9.4-12.4); Monocytes # (auto) 0.85 K/uL (0.11-0.59); Monocytes % (auto) 8.3 %; Neutrophils # (auto) 7.71 K/uL (1.40-6.50); Neutrophils % (auto) 75.8 %; Platelet Count 151 K/uL (130-400); RDW Coefficient of Variation 12.8 % (11.5-14.5); RDW Standard Deviation 47.2 fL (36.4-46.3); Red Blood Count 3.48 M/uL (4.20-5.40); White Blood Count 10.18 K/ul (4.8-10.8)
[2024-01-23 02:38] LABS: Albumin Globulin Ratio 1.8 (0.9-2); Albumin Level 3.9 gm/dl (3.4-5.0); BUN Creatinine Ratio 35.3 (10-20); Bilirubin,Total 0.8 mg/dl (0.2-1.0); Calcium 8.6 mg/dl (8.6-10.3); Chol HDL Ratio 3.4 (0-5); Creatinine Clr Calc Pharmacy 92.3 ml/min; Est GFR (African American) 115.3 ml/min; Est GFR (Non-African American) 99.5 ml/min; Globulin 2.2 gm/dl (2.5-4.0); Magnesium 1.7 mg/dl (1.7-2.4); Potassium 3.3 mmol/L (3.5-5.1); Total Protein 6.1 gm/dl (6.0-8.3)
[2024-01-23 03:16] LABS: ANTI-Xa, UFH(UnfractionatedHep 0.22 IU/ml (0.3-0.7)
[2024-01-23 03:48] LABS: Troponin I High Sensitivity 3258.8 pg/ml (0-14)
[2024-01-23] MEDS: FUROSEMIDE 40 MG/4 ML VIAL IV SCH (09:39)
--- NOTE | 2024-01-23 10:01 | Cardiology Progress Note ---
Date of Service January 23, 2024 Assessment & Plan (1) Elevated troponin: (2) Takotsubo cardiomyopathy: (3) Acute HFrEF (heart failure with reduced ejection fraction): (4) COPD (chronic obstructive pulmonary disease): (5) Moderate to severe mitral regurgitation: Plan 69-year-old woman with acute large area of myocardial damage, most likely stress-induced cardiomyopathy (Takotsubo syndrome) but has vascular risk factors leaving the possibility of conventional myocardial infarction involving a large territory. Given this uncertainty as well as to reduce the risk of apical thrombus, would continue heparin overnight. Also, given uncertainty recommend that she proceed to cardiac catheterization tomorro (will schedule) Hemodynamics favorable overnight. As noted, if she develops tachycardia or hypertension would aggressively manage. No dysrhythmias. No clinical heart failure currently, she is able to lie flat. She did receive a dose of IV furosemide this morning, would document input/output (not available thus far) and continue to follow her clinical and volume status closely. Could reassess LV function with left ventriculogram or limited echo tomorrow, along with cardiac catheterization results this will offer insight as to the etiology of her myocardial damage. Also, either of these studies will help reassess the degree of mitral regurgitation. Continue aspirin. Would add statin, even if her myocardial damage was due to Takotsubo she has significant vascular risk factors (HTN, tobacco use). Will continue to follow along. Admission and Anticipated Discharge Date Admission Date: January 22, 2024 Subjective Uneventful night. During the night she did note a transient "spasm" type discomfort left infrascapular region radiating to left inframammary thorax, lasted 10-15 minutes and had a positional component. No associated symptoms. She feels well this morning. No chest pain, dyspnea, palpitations, or lightheadedness. She is able to lie flat, no orthopnea or PND. Telemetry showed sinus rhythm in the 80-100 bpm range. Physical Exam Physical Exam: No distress. BP 100/64 mmHg. Pulse 89 bpm and regular. Respirations 18 and unlabored. Skin: no ecchymoses or generalized lesions. HEENT: unremarkable. Neck: JVP at the clavicle at 90 degrees, no carotid bruits. Lungs: Moderately decreased breath sounds, few basilar crackles but generally clear. Cardiac: regular rhythm, normal S1-2, 2/6 holosystolic murmur heard only in the axilla, no diastolic murmur. Abdomen: benign. Extremities: no edema, pulses intact. Neurologic: normal affect and conversation, nonfocal. Results & Data Laboratory Results Troponin peaked at 5940, latest value 2919. Potassium 3.3, BUN 18, creatinine 0.51. Hemoglobin 11.8. PG Care Time/CCT Total # of Minutes Spent Total Time Spent with Patient: Total time spent is greater than 50% in coordination of care (as documented) at patient's floor/unit and/or counseling patient: Coding Level of Care Code 15478 SUB INP/OBS CARE 3/50MIN Diagnoses Elevated troponin R79.89 Takotsubo cardiomyopathy I51.81 Acute HFrEF (heart failure with reduced ejection fraction) I50.21 COPD (chronic obstructive pulmonary disease) J44.9 Moderate to severe mitral regurgitation I34.0
[2024-01-23 10:09] LABS: ANTI-Xa, UFH(UnfractionatedHep 0.23 IU/ml (0.3-0.7)
[2024-01-23] MEDS: MAGNESIUM SULFATE / D5W 1 GM/100 ML BAG IV SCH (10:37)
[2024-01-23] MEDS: ASPIRIN 81 MG ECTAB PO SCH (10:45)
[2024-01-23] MEDS: POTASSIUM CHLORIDE CRTAB 20 MEQ TABCR PO SCH (10:45)
--- NOTE | 2024-01-23 14:35 | Hospitalist Progress Note ---
Date of Service January 23, 2024 Assessment & Plan (1) Acute HFrEF (heart failure with reduced ejection fraction): Plan: Patient presents with acute onset of SOB at rest, left-sided CP, productive cough, and orthopnea on the evening of 01/20 after flying from [place] for her sister's Chest CTA without acute pulmonary embolism, but shows cardiomegaly and pulmonary edema, small pleural effusions, and emphysema Troponin 2695 on arrival and ECG showed sinus tachycardia, inferolateral ST and T wave abnormalities consistent with NSTEMI BNP elevated at 1115 Aspirin 324mg and Nitropaste given in the ED and she was continued on Nitropaste and given diuretics on admission. She is feeling improved and is weaning off oxygen, less dyspnea ECHO shows LVEF 25-30%, LV moderately dilated with all mid to distal murphy akinetic, remaining murphy moving normally, suggestive of Takotsubo syndrome. Also with moderate-severe MR, moderate TR, and elevated RVSP at 30-40 mmHg Cardiology consulted-recommends cardiac catheterization for Wednesday to rule out CAD with risk factors of HTN and smoking Continue strict I&Os, low-sodium diet, 1800 mL fluid restriction Received 2 doses of IV Lasix-hold further for now Started metoprolol 12.5 Mg p.o. every 6 hours and will convert to Toprol-XL on discharge Follow BMP, magnesium in the morning Monitor on telemetry for arrhythmia (2) NSTEMI (non-ST elevated myocardial infarction): Plan: Troponin 2695 on admission and peaked at 5940. She did have some atypical left- sided chest pain which seems to be more musculoskeletal in nature and is positional ECG with some inferolateral ST and T wave abnormalities Most likely secondary to Takotsubo cardiomyopathy but undergoing cardiac catheterization on Wednesday as noted above Start aspirin 81 mg daily Started metoprolol 12.5 Mg p.o. every 6 hours Hold off on starting statin until transaminitis improves and if proven CAD on cath-lipid panel is actually pretty good with total cholesterol 198 and LDL 116 (3) Acute hypoxic respiratory failure: Plan: Patient's SpO2 dropped to 87% on RA on arrival secondary to acute heart failure- was requiring 4L NC Initially thought to possibly have pneumonia because of mild leukocytosis but procalcitonin is negative, bio fire respiratory panel negative, and chest CT findings are secondary to heart failure and pulmonary edema Can discontinue ceftriaxone and azithromycin Continue supplemental O2 but wean off to keep pulse ox greater than 90%-now weaned down to 2 L Hold off on further diuresis at this time Sputum culture was collected and is pending but doubt infectious cause. Blood cultures no growth to date-follow Patient does have significant sinus pressure and postnasal drip for the last se veral weeks but no fevers.-Added doxycycline 100 Mg p.o. twice daily x 10 days for acute sinusitis (4) Transaminitis: Plan: AST and ALT are elevated and fairly stable from previous in the 80s. She does not have any abdominal pain or nausea. She does drink a couple glasses of wine every day Do not suspect tickborne illness as she has no other symptoms of such Could be from acute heart failure and hepatic congestion No need for imaging of the liver at this point but if worsens, could consider liver imaging and/or further evaluation for causes of transaminitis Hold off on starting statin at this time as recommended by cardiology Follow CMP (5) Muscle strain of chest wall: Plan: She thinks she strained her intercostal muscles while picking up her luggage at the airport 2 days ago. The pain is worse with twisting and movement. It feels like a muscle spasm Add lidocaine patch and Flexeril as needed Tylenol as needed (6) Hypokalemia: Plan: Low from Lasix diuresis Replaced with 40 mEq p.o. x 2 today Give 1 g IV magnesium for low normal magnesium level Follow BMP and magnesium in the morning (7) Moderate to severe mitral regurgitation: Plan: Noted on echocardiogram Diuresing Plan Current smoker and encourage cessation HTN-holding amlodipine from home and started metoprolol Disposition: Continued stay on PCU telemetry VTE PPx: Heparin drip Admission and Anticipated Discharge Date Admission Date: January 22, 2024 Subjective Patient reports feeling less short of breath today and is weaned down to 2 L nasal cannula. She is reporting left sided rib pain that hurts worse with movements and stretching and thinks that she pulled a muscle getting her luggage in the airport. It does improve with taking aspirin. She reports improvement in the leg swelling that she had after she got off the airplane. She denies any abdominal pain or nausea. She overall is feeling better. She reports she has been feeling a lot of sinus congestion which causes a burning sensation into the roof of her mouth and a lot of thick mucus drainage down her throat into her chest for the last few weeks Telemetry with normal sinus rhythm with rates in the 80s to low 100s Physical Exam Constitutional: WD/WN, vitals as above Respiratory: normal respiratory effort Auscultation: + crackles (Bibasilar); no rhonchi and no wheezes Cardiovascular: RRR, no murmur, no edema Gastrointestinal (Abdomen): normal bowel sounds, soft, nontender, no hepatosplenomegaly Skin: no rashes, warm and dry Psychiatric: A+Ox3, euthymic affect Results & Data Results & Data Vital Signs (Past 12 Hours) Vital Signs Temp Pulse Pulse Resp BP Pulse Ox O2 Del Method 01/23/24 10:52 36.6 C 91 H 19 107/74 97 Nasal Cannula 01/23/24 09:24 112 H 01/23/24 07:31 37.3 C 89 19 107/72 94 Nasal Cannula 01/23/24 07:15 Nasal Cannula 01/23/24 07:15 88 01/23/24 05:22 86 100/64 01/23/24 03:05 37.0 C 87 18 106/64 94 Nasal Cannula O2 Flow Rate 01/23/24 10:52 4 01/23/24 09:24 01/23/24 07:31 4 01/23/24 07:15 2 01/23/24 07:15 01/23/24 05:22 01/23/24 03:05 4 Laboratory Results CBC, CMP, anti-Xa, MRSA swab, troponin reviewed Blood cultures and sputum culture reviewed PG Care Time/CCT Total # of Minutes Spent Total Time Spent with Patient: Total time spent is greater than 50% in coordination of care (as documented) at patient's floor/unit and/or counseling patient: Coding Level of Care Code 23533 SUB INP/OBS CARE 3/50MIN Diagnoses Acute HFrEF (heart failure with reduced ejection fraction) I50.21 NSTEMI (non-ST elevated myocardial infarction) I21.4 Acute hypoxic respiratory failure J96.01 Transaminitis R74.01 Muscle strain of chest wall S29.011A Hypokalemia E87.6 Moderate to severe mitral regurgitation I34.0
[2024-01-23] MEDS ORDERED: AZITHROMYCIN 500 MG in DEXTROSE 5% 250 ML IV SCH (15:30)
[2024-01-23] MEDS: LIDOCAINE 5% 1 PATCH TD STA (15:43)
[2024-01-23 16:59] LABS: ANTI-Xa, UFH(UnfractionatedHep 0.24 IU/ml (0.3-0.7)
[2024-01-23] MEDS: CYCLOBENZAPRINE HCL 5 MG TAB PO PRN (19:43)
[2024-01-23] MEDS: DOXYCYCLINE HYCLATE 100 MG CAP PO SCH (21:48)
[2024-01-24 00:14] LABS: ANTI-Xa, UFH(UnfractionatedHep 0.25 IU/ml (0.3-0.7)
[2024-01-24] MEDS: FUROSEMIDE INJ 20 MG/2 ML VIAL IV ONE (01:06)
[2024-01-24] MEDS: POTASSIUM CHLORIDE CRTAB 20 MEQ TABCR PO STA (01:09)
--- NOTE | 2024-01-24 01:19 | Communication Note ---
Date of Service: January 24, 2024 Patient here for management of acute hypoxic respiratory failure 2/2 acute on chronic HFrEF and pulmonary edema. Improved with diuresis to 2L NC. Plan for cardiac cath 01/23 to eval for CAD. Notified of worsening respiratory status. Patient with increased oxygen requirement (4-5 L oxymask), tachypnea, and increased work of breathing. Resident at bedside. Patient in mild distress. Able to speak in sentences, no nasal flaring or retractions noted. Patient was fine on 2L, ambulating to the bathroom, and then was unable to catch her breath. Ordered 20 mg IV Lasix, CXR, ABG, BNP, BMP. Patient with hypocapnia/respiratory alkalosis. BNP stably elevated. BMP largely unremarkable. CXR without significant change from prior. Will continue to follow clinical course. Can repeat Lasix if needed. Resident Activity Tracking Resident Involvement: Resident Care Provided Care Provided: Adult Hospital Medicine
[2024-01-24 01:37] LABS: Base Excess ABG -0.2 mEq/L (-9-1.8); HCO3 ABG 23 mmol/L (19-24); PCO2 ABG 31 mmHg (35-46); PO2 ABG 83 mmHg (80-95); pH ABG 7.47 (7.35-7.45)
[2024-01-24 02:21] LABS: Allen Test Pos (Pos)
[2024-01-24 02:25] LABS: BUN Creatinine Ratio 32.7 (10-20); Creatinine Clr Calc Pharmacy 97.7 ml/min; Est GFR (African American) 116.8 ml/min; Est GFR (Non-African American) 100.8 ml/min
[2024-01-24 06:43] LABS: Basophils # (auto) 0.04 K/uL (0.00-0.20); Basophils % (auto) 0.4 %; Eosinophils # (auto) 0.01 K/uL (0.00-0.50); Eosinophils % (auto) 0.1 %; Hematocrit (blood only) 37.5 % (37.0-47.0); Hemoglobin 12.6 g/dl (12.0-16.0); Immature Granulocytes # (auto) 0.03 K/uL (0.01-0.20); Immature Granulocytes % (auto) 0.3 %; Lymphocytes # (auto) 1.41 K/uL (1.20-3.40); Lymphocytes % (auto) 15.3 %; Mean Corpuscular Hemoglobin 34.1 pg (25.0-34.0); Mean Corpuscular Hgb Conc 33.6 g/dL (32.0-36.0); Mean Corpuscular Volume 101.4 fL (80.0-100.0); Monocytes # (auto) 0.92 K/uL (0.11-0.59); Neutrophils # (auto) 6.82 K/uL (1.40-6.50); Neutrophils % (auto) 73.9 %; Platelet Count 136 K/uL (130-400); RDW Coefficient of Variation 12.4 % (11.5-14.5); RDW Standard Deviation 46.6 fL (36.4-46.3); White Blood Count 9.23 K/ul (4.8-10.8)
[2024-01-24 07:13] LABS: Albumin Globulin Ratio 1.7 (0.9-2); BUN Creatinine Ratio 35.9 (10-20); Bilirubin,Total 1.3 mg/dl (0.2-1.0); Calcium 8.7 mg/dl (8.6-10.3); Creatinine Clr Calc Pharmacy 124.4 ml/min; Est GFR (Non-African American) 108.7 ml/min; Globulin 2.4 gm/dl (2.5-4.0); Potassium 4.1 mmol/L (3.5-5.1); Total Protein 6.4 gm/dl (6.0-8.3)
[2024-01-24 07:19] LABS: ANTI-Xa, UFH(UnfractionatedHep 0.22 IU/ml (0.3-0.7)
--- NOTE | 2024-01-24 07:42 | XRay Report ---
XR chest 1V portable HISTORY: SOB, increased O2 requirement COMPARISON: Chest 01/22/2024. FINDINGS: No pneumothorax. Small bilateral pleural effusions and right basilar densities persist. The re is diffuse interstitial/vascular thickening consistent with mild interstitial pulmonary edema. The re is left shoulder prosthesis. The heart remains mildly enlarged. No acute fractures. IMPRESSION: 1. No change in the cardiomegaly and mild interstitial pulmonary edema. 2. Small bilateral pleural effusions and right basilar densities persist. ACT 112: Negative or not required by law. Electronically signed by: Gurdeep Sarah M.D. 01/24/2024 7:40 AM
[2024-01-24] MEDS: CYCLOBENZAPRINE HCL 5 MG TAB PO PRN (08:37)
--- NOTE | 2024-01-24 09:04 | Electrocardiogram Report ---
Test Reason : Blood Pressure : */* mmHG Vent. Rate : 81 BPM Atrial Rate : 81 BPM P-R Int : 126 ms QRS Dur : 90 ms QT Int : 418 ms P-R-T Axes : 55 58 -65 degrees QTcB Int : 485 ms Normal sinus rhythm Anterior infarct , age undetermined (cited on or before 22-Jan-2024) T wave abnormality, consider inferolateral ischemia Abnormal ECG When compared with ECG of 22-Jan-2024 09:24, Serial changes of evolving Anterior infarct Present Confirmed by Lester Abreu ([id number]) on 01/24/2024 9:04:08 AM Referred By: REFERRED SELF Confirmed By: Lester Abreu
[2024-01-24] MEDS: METOPROLOL TARTRATE 25 MG TAB PO SCH (09:43)
[2024-01-24] MEDS: FUROSEMIDE 40 MG/4 ML VIAL IV SCH (09:43)
--- NOTE | 2024-01-24 12:25 | Hospitalist Progress Note ---
Date of Service January 24, 2024 Assessment & Plan (1) Acute HFrEF (heart failure with reduced ejection fraction): Plan: Evidence of CHF seen on admission chest CTA which was negative for PE. She remains on parenteral Lasix. Monitor intake and output. Current echo reveals ejection fraction of 25% with evidence of distal anterior wall and apical hypokinesis which may represent Takotsubo cardiomyopathy from the recent stress associated with her sisters . The patient is visiting from [place] for the . Chest CTA on admission negative for PE but positive for pulmonary edema, small pleural effusions, and emphysema. Monitor intake and output. (2) NSTEMI (non-ST elevated myocardial infarction): Plan: Distal anterior wall and apex. This could represent Takotsubo cardiomyopathy. Appreciate cardiology consultation and recommendations. Left heart catheterization is pending today, January 23. Continue current medical management for now (3) Acute hypoxic respiratory failure: Plan: Supplemental oxygen per nasal cannula to maintain saturation greater than 90%. Wean off as tolerated. (4) Transaminitis: Plan: AST and ALT are mildly elevated. This could be from passive hepatic congestion related to the CHF. Will follow. Hold off on starting statin until LFTs normalize. (5) Hypokalemia: Plan: Oral replacement. Serial labs (6) Moderate to severe mitral regurgitation: Plan: Seen on cardiac echo. Medical management (7) Essential hypertension: Plan: Medical management (8) Tobacco use: Plan: Smoking cessation recommended Plan Hopeful discharge to home tomorrow, January 24 Admission and Anticipated Discharge Date Admission Date: January 22, 2024 Subjective Alert and oriented. No distress. Case discussed with cardiology. Left heart catheterization today, January 23, is pending. She is on parenteral Lasix at this time to treat suspected acute on chronic systolic CHF present on admission. Review of Systems 2 Review of Systems: Constitutionalno fever or chills ENTno blurred vision, no double vision, no epistaxis, no sore throat Respiratoryno cough, no wheezing, no shortness of breath Cardiacno palpitations, no syncope. Chest discomfort has resolved and has not recurred Carito nausea, vomiting, diarrhea, melena, hematochezia GUno urinary retention, no urinary incontinence, no dysuria, no hematuria Musculoskeletalno joint pain, no muscle tenderness Skinno bruising, no rashes, no pruritus Neurono isolated weakness, no paresthesia, no weakness Psychno depression, no anxiety Physical Exam 2 Physical Exam: General-alert and oriented x3, no fever, no chills HEENT-head atraumatic and normocephalic, pupils equal and reactive to light, extraocular muscles intact Neck-no lymphadenopathy or thyromegaly, trachea midline Chest-clear to auscultation. No rales, wheezing or rhonchi Cardiac-regular rate and rhythm, normal S1 and S2 Abdomen-normal bowel sounds, no hepatosplenomegaly Extremities-no cyanosis, clubbing, or edema Neuro-cranial nerves II through XII intact, motor and sensory function within normal limits, strength symmetrical, no focal deficits Psych-normal affect, normal mood Results & Data Results & Data Vital Signs (Past 12 Hours) Vital Signs Temp Pulse Pulse Resp BP BP Pulse Ox 01/24/24 12:04 76 18 111/71 95 01/24/24 10:44 36.8 C 94 H 17 119/78 96 01/24/24 09:42 98 H 01/24/24 07:36 37.7 C H 90 20 119/74 92 01/24/24 07:00 01/24/24 07:00 90 01/24/24 03:40 36.7 C 95 H 26 H 115/79 96 01/24/24 01:11 118 H 131/85 01/24/24 00:50 116 H 32 H 94 O2 Del Method O2 Flow Rate 01/24/24 12:04 Room Air 01/24/24 10:44 Oxymask 6 01/24/24 09:42 01/24/24 07:36 Oxymask 5 01/24/24 07:00 Oxymask 5 01/24/24 07:00 01/24/24 03:40 Oxymask 5 01/24/24 01:11 01/24/24 00:50 Oxymask 4 Laboratory Results 01/24/24 06:27 01/24/24 06:27 PG Care Time/CCT Total # of Minutes Spent Total Time Spent with Patient: Total time spent is greater than 50% in coordination of care (as documented) at patient's floor/unit and/or counseling patient: Coding Level of Care Code 23962 SUB INP/OBS CARE 3/50MIN Diagnoses Acute HFrEF (heart failure with reduced ejection fraction) I50.21 NSTEMI (non-ST elevated myocardial infarction) I21.4 Acute hypoxic respiratory failure J96.01 Transaminitis R74.01 Hypokalemia E87.6 Moderate to severe mitral regurgitation I34.0 Essential hypertension I10 Tobacco use Z72.0
[2024-01-24] MEDS: fentaNYL citrate PF 100 MCG/2 ML VIAL ONE (13:42)
[2024-01-24] MEDS: MIDAZOLAM HCL 1 MG/ML 2ML VIAL ONE (13:49)
[2024-01-24] MEDS: OPTIRAY 350 ONE (13:51)
--- NOTE | 2024-01-24 15:29 | XCELERA ---
[id number]
[2024-01-24 15:45] LABS: ANTI-Xa, UFH(UnfractionatedHep < 0.10 IU/ml (0.3-0.7)
[2024-01-24] MEDS: HEPARIN (PORCINE) 1000 UNIT/ML 10 ML (CATH LAB USE ONLY) ONE (15:56)
[2024-01-24] MEDS: NITROGLYCERIN/D5W 100MCG/ML 20ML SYR ONE (15:57)
[2024-01-24] MEDS: niCARdipine HCL INJ 2.5 MG/ML 10 ML AMP ONE (15:57)
--- NOTE | 2024-01-24 16:35 | Cardiac Catheterization ---
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 Cardiac Status Clinical evaluation leading to the procedure CAD Presenation: Non STEMI Anginal Classification: CCS IV Heart Failure: NYHA Class: CCS IV Cardiogenic Shock within 24 Hours: No Cardiac Arrest within 24 Hours: No Imaging Studies Past 6 Months: No Stress Studies Past 6 Months: No Coronary Anatomy Dominant: Right Left Main (% Stenosis): Normal LAD (% Stenosis): Ostial (30 to 40%) and Proximal (100%) D1 (% Stenosis): Normal D2 (% Stenosis): Normal Circumflex (% Stenosis): Ostial (40%) OM1 (% Stenosis): Normal L PL1 (% Stenosis): Normal RCA (% Stenosis): Proximal (99%) and Distal (30%) R PDA (% Stenosis): Normal R PL1 (% Stenosis): Normal Ramus (% Stenosis): Proximal (80%) Diagnostic Physicians Name: Mitchell Knox MD, PhD Closure Device Percutaneous Entry Location: Radial Closure Device: Radial Band Recommendations: CABG Cardiac Cath Procedure Full Procedure Date January 24, 2024 Pre-Procedure Diagnosis Pre-Procedure Diagnosis: Non STEMI AUC Score AUC Score: 07 Post-Procedure Diagnosis Post-Procedure Diagnosis: Severe CAD Procedure(s) Performed Procedure(s) Performed: Coronary Angiography Industrial Hygenist Mitchell Knox MD, PhD Estimated Blood Loss Estimated Blood Loss: 5 cc Medication(s) Medication(s): Fentanyl, Heparin, Lidocaine 1%, Nicardipine, Nitroglycerin and Versed Summary of Findings Brief description: Patient was brought to the cardiac catheterization suite where she was shaved and prepped in a sterile fashion. Sedated using IV Versed and fentanyl. Soft tissues of the right wrist were anesthetized using 2 mL of 1% Xylocaine. The right radial artery was accessed with modified Seldinger technique and a 6 [place] Islander radial artery glide sheath was placed. Patient was provided anticoagulation with IV heparin and antispasmodics including nicardipine and nitroglycerin. All catheters were advanced and exchanged over a 0.035 J-tip wire. Left coronary angiography in orthogonal views with a 5 [place] 4 diagnostic catheter. Right coronary angiography in orthogonal views with a 5 [place] 4 diagnostic catheter. Diagnostic catheters were removed. Radial artery sheath was removed. Hemostasis was obtained using the radial band. Patient was hemodynamically stable and asymptomatic. She was returned to the recovery area. This ended the case. Coronary angiography findings: LMT-this is a large-caliber vessel trifurcating into the LAD, ramus, and circumflex. Mild luminal irregularities. [id number] and transapical. Ostial calcified 30 to 40% stenosis. Proximal mild to moderate calcification with diffuse mild disease. Then just after the large first septal branch the LAD is a 100% occluded. The mid and distal LAD are seen to fill via left to left collateralization. 2 diagonal branches are noted. The LAD and the second diagonal appear to be large enough for coronary artery bypass grafting. Ramus-this is large caliber and branches. There is a proximal up to 80% stenosis. [id number]-[id number]-zgunrto and nondominant. Ostial 40% stenosis. AV groove vessel has diffuse luminal irregularities. There is a small branching OM1 and then the circumflex provides a large caliber posterior lateral. RCA-this is large caliber and dominant. Proximally there is a focal 99% subtotal occlusion. The mid vessel has no disease and distally there is less than 30% calcified stenosis before the bifurcation. RCA bifurcates into a large PDA and a large multi branching posterolateral. Both of these vessels fill antegrade as well as via [id number] collateralization. Summary: 1. Severe multivessel coronary artery disease 2. Recommend evaluation by CT surgery regarding coronary artery bypass grafting. If patient is determined to be excessive risk for surgery then high risk multivessel PCI could be considered at tertiary center. 3. Initiate guideline directed medical therapy for secondary prevention of coronary disease to include; low-dose aspirin, high intensity statin therapy, beta-chavez, plus or minus JEAN-PAUL inhibitor/ARB as tolerated. Hemodynamics Rest Ao:: 103/73 mmHg Final Ao: 94/66 mmHg LV: Not performed Recommendations Recommendations: CABG Radiation Exposure (mGy) 855 mGy, fluoroscopy time 1.7 minutes Contrast (mls) 80 Anesthesia 1 mg Versed, 25 mcg fentanyl IV. 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 Any exceptions are noted below. [facility]x Card Cath Procedure Codes Cardiac Catheterization Procedure 1: Cardiovascular Cath Procedures: 23006 Coronaries Moderate Sedation Procedure 1: Sedation/Anesthesia: 36151 Mod Sedation by the same physician;Init15 Min Child Age 5 & Up (Initial 15 minutes, start 1307) Procedure 2: Sedation/Anesthesia: 29725 Mod Sedation by the same physician; Ea [id number] Minutes (Additional 16 minutes, end 1338) PG Care Time/CCT Total # of Minutes Spent Total Time Spent with Patient: Total time spent is greater than 50% in coordination of care (as documented) at patient's floor/unit and/or counseling patient:
--- NOTE | 2024-01-24 17:03 | Pre Anesthesia Assessment ---
Date of Service January 24, 2024 Pre Sedation Assessment Vital Signs Temp Pulse Pulse Resp BP BP BP 01/24/24 16:31 37.0 C 98 H 18 130/83 01/24/24 16:00 36.8 C 95 H 18 118/78 01/24/24 15:30 37.1 C 92 H 18 113/73 01/24/24 15:15 36.7 C 87 18 118/78 01/24/24 15:00 36.9 C 88 18 108/72 01/24/24 14:46 37.2 C 82 18 110/70 01/24/24 14:35 36.9 C 87 18 104/71 01/24/24 14:30 36.9 C 88 18 126/79 01/24/24 14:25 36.4 C L 92 H 18 95/67 L 01/24/24 14:05 87 16 102/64 01/24/24 13:50 86 16 106/69 01/24/24 12:04 76 18 111/71 01/24/24 10:44 36.8 C 94 H 17 119/78 01/24/24 09:42 98 H 01/24/24 07:36 37.7 C H 90 20 119/74 01/24/24 07:00 01/24/24 07:00 90 01/24/24 03:40 36.7 C 95 H 26 H 115/79 01/24/24 01:11 118 H 131/85 01/24/24 00:50 116 H 32 H 01/23/24 23:49 82 01/23/24 22:57 36.4 C L 98 H 18 127/83 01/23/24 21:58 86 102/67 01/23/24 20:00 01/23/24 19:10 37.5 C 98 H 18 120/75 Pulse Ox O2 Del Method O2 Flow Rate 01/24/24 16:31 95 Oxymask 5 01/24/24 16:00 96 Oxymask 5 01/24/24 15:30 96 Oxymask 5 01/24/24 15:15 95 Oxymask 5 01/24/24 15:00 95 Oxymask 5 01/24/24 14:46 95 Oxymask 5 01/24/24 14:35 95 Oxymask 5 01/24/24 14:30 95 Nasal Cannula 5 01/24/24 14:25 Oxymask 5 01/24/24 14:05 92 Oxymask 6 01/24/24 13:50 92 Oxymask 6 01/24/24 12:04 95 Room Air 01/24/24 10:44 96 Oxymask 6 01/24/24 09:42 01/24/24 07:36 92 Oxymask 5 01/24/24 07:00 Oxymask 5 01/24/24 07:00 01/24/24 03:40 96 Oxymask 5 01/24/24 01:11 01/24/24 00:50 94 Oxymask 4 01/23/24 23:49 01/23/24 22:57 92 Nasal Cannula 2 01/23/24 21:58 01/23/24 20:00 Nasal Cannula 2 01/23/24 19:10 92 Nasal Cannula 2 Cardiovascular Additional Comments: RRR S4 2-3/6 SM JVD Respiratory Additional Comments: INCREASED WOB MASK CRACKLES Pre-Sedation Airway Assessment Smoking Status: Current every day smoker Hx Sleep Apnea: No Short, Thick Neck: No Thyromental Distance: > or= 3.5 Finger Breadths Oral Cavity: + WNL Mallampati Class: III ASA: ASA4 NPO Status Date of Last Intake of Fluids: 01/23/24 Time of Last Intake of Fluids: 22:00 Date of Last Intake of Solid Food: 01/23/24 Time of Last Intake of Solid Foods: 22:00 Notes The planned sedation has been discussed with the patient. Informed Consent was obtained. I have identified the patient, determined the appropriateness of sedation and have assessed the patient immediately prior to the procedure. All medicine(s) and interventions are by my order.
--- NOTE | 2024-01-24 17:05 | Post Anesthesia Assessment ---
Date of Service January 24, 2024 Post Sedation Assessment Vital Signs Temp Pulse Pulse Resp BP BP BP 01/24/24 16:31 37.0 C 98 H 18 130/83 01/24/24 16:00 36.8 C 95 H 18 118/78 01/24/24 15:30 37.1 C 92 H 18 113/73 01/24/24 15:15 36.7 C 87 18 118/78 01/24/24 15:00 36.9 C 88 18 108/72 01/24/24 14:46 37.2 C 82 18 110/70 01/24/24 14:35 36.9 C 87 18 104/71 01/24/24 14:30 36.9 C 88 18 126/79 01/24/24 14:25 36.4 C L 92 H 18 95/67 L 01/24/24 14:05 87 16 102/64 01/24/24 13:50 86 16 106/69 01/24/24 12:04 76 18 111/71 01/24/24 10:44 36.8 C 94 H 17 119/78 01/24/24 09:42 98 H 01/24/24 07:36 37.7 C H 90 20 119/74 01/24/24 07:00 01/24/24 07:00 90 01/24/24 03:40 36.7 C 95 H 26 H 115/79 01/24/24 01:11 118 H 131/85 01/24/24 00:50 116 H 32 H 01/23/24 23:49 82 01/23/24 22:57 36.4 C L 98 H 18 127/83 01/23/24 21:58 86 102/67 01/23/24 20:00 01/23/24 19:10 37.5 C 98 H 18 120/75 Pulse Ox O2 Del Method O2 Flow Rate 01/24/24 16:31 95 Oxymask 5 01/24/24 16:00 96 Oxymask 5 01/24/24 15:30 96 Oxymask 5 01/24/24 15:15 95 Oxymask 5 01/24/24 15:00 95 Oxymask 5 01/24/24 14:46 95 Oxymask 5 01/24/24 14:35 95 Oxymask 5 01/24/24 14:30 95 Nasal Cannula 5 01/24/24 14:25 Oxymask 5 01/24/24 14:05 92 Oxymask 6 01/24/24 13:50 92 Oxymask 6 01/24/24 12:04 95 Room Air 01/24/24 10:44 96 Oxymask 6 01/24/24 09:42 01/24/24 07:36 92 Oxymask 5 01/24/24 07:00 Oxymask 5 01/24/24 07:00 01/24/24 03:40 96 Oxymask 5 01/24/24 01:11 01/24/24 00:50 94 Oxymask 4 01/23/24 23:49 01/23/24 22:57 92 Nasal Cannula 2 01/23/24 21:58 01/23/24 20:00 Nasal Cannula 2 01/23/24 19:10 92 Nasal Cannula 2 Recovery Score Activity: Moves 4 extremities Respiration: Deep Breath/Cough Circulation: +/-20% PreAnes Value Consciousness: Fully Awake Oxygen Saturation: O2 needed for >90% Post Anesthesia Score: 9 Discharge Sedation Level of Care: Phase I Post Sedation Plan On clinical assessment, the patient appears to have tolerated the sedation without complications. Patient is recovering as anticipated. Patient will continue to be monitored by nursing and may be discharged when sedation discharge criteria are met per below protocol. Upon Completions of procedure up to 15 minutes continue every 5 minute vital signs and the P.A.R. score; then discharge to a Phase I or Fast Track to Phase II per the following guidelines: * Discharge Patient to appropriate Phase II area if PAR is 8 or greater or return to pre- procedure baseline. The post - procedure orders will be as directed. * If PAR score is less than 8 or not return to pre-procedure baseline then patient will follow Phase I monitoring till PAR is reached for Phase II. The Phase I may be done in procedure room or may call to secure a Phase I area. * If naloxone or flumazenil are used for reversal, hold in Phase I for continued monitoring from when last reversal dose was given for a minimum of 60 minutes or longer pending the nurse and/or physician discretion of patient condition before discharge to Phase II. Please call the Sedation Physician to re-evaluate and complete post-note for discharge to Phase II area. Do NOT discharge from procedure sedation or Phase 1 until post- sedation evaluation note is complete by procedure /sedation MD Sedation Discharge Instructions to be given to the patient at discharge to home. 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
--- NOTE | 2024-01-24 17:32 | Cardiology Progress Note ---
Date of Service January 24, 2024 Assessment & Plan (1) Acute apical myocardial infarction: (2) Acute HFrEF (heart failure with reduced ejection fraction): (3) COPD (chronic obstructive pulmonary disease): (4) Moderate to severe mitral regurgitation: (5) Tobacco use: Plan Unfortunately, although her large area of myocardium involved suggested stress- induced cardiomyopathy, it appears that her wall motion abnormalities are due to conventional coronary artery disease involving her 2 largest coronary arteries. Timing of events is uncertain, appears that her LAD may have been chronically occluded with perhaps transient RCA occlusion or near occlusion precipitating decompensation. After discussion of risks, benefits, and available options, arrangements will be made to transfer patient to [facility] tomorrow for evaluation by cardiothoracic surgery team. In addition to likely CABG, her mitral valve will need to be assessed to determine if concurrent valve repair or replacement might be necessary. Hemodynamics remain reasonable, continue metoprolol to diminish likelihood of tachycardia. Continue intravenous heparin given subtotal right coronary artery findings. Add statin. Agree with institution of diuretic to avoid volume overload. Suspect underlying COPD given ease with which oxygen desaturation has been occurring with minimal findings on lung exam/chest x-ray. She remains on supplemental oxygen. Obviously, counseled on need for absolute smoking cessation. Admission and Anticipated Discharge Date Admission Date: January 22, 2024 Subjective Cardiac catheterization today showed severe multivessel disease (100% LAD, 80% ramus, 99% RCA, nonocclusive circumflex) which would best be addressed through coronary artery bypass grafting. Repeat echocardiogram today showed persistent wall motion abnormalities, reduced but stable LV systolic dysfunction (EF 30% range), and persistent moderate to severe mitral regurgitation. There was no evidence of left ventricular thrombus. Patient tolerated the procedure well and had no somatic complaints at the time of my reevaluation this evening. She denied any chest pain, dyspnea at rest, palpitations, or lightheadedness. Telemetry has shown only sinus rhythm without dysrhythmias, occasional mild sinus tachycardia. Physical Exam Physical Exam: No distress. BP 130/83 mmHg. Pulse 98 bpm and regular. Respirations 18 and unlabored. Skin: no ecchymoses or generalized lesions. HEENT: unremarkable. Neck: JVP one quarter the way to the angle of the jaw, no carotid bruits. Lungs: Moderately decreased breath sounds, few basilar crackles but generally clear. Cardiac: regular rhythm, normal S1-2, 2/6 holosystolic murmur heard only in the axilla, no diastolic murmur. Abdomen: benign. Extremities: no edema, pulses intact. Neurologic: normal affect and conversation, nonfocal. Results & Data Laboratory Results Sodium 135, potassium 4.1, BUN 14, creatinine 0.39. Diagnostic Findings Chest x-ray at 1 AM this morning showed mild interstitial pulmonary edema which was unchanged. PG Care Time/CCT Total # of Minutes Spent Total Time Spent with Patient: Total time spent is greater than 50% in coordination of care (as documented) at patient's floor/unit and/or counseling patient: Coding Level of Care Code 28578 SUB INP/OBS CARE 3/50MIN Diagnoses Acute apical myocardial infarction I21.29 Acute HFrEF (heart failure with reduced ejection fraction) I50.21 COPD (chronic obstructive pulmonary disease) J44.9 Moderate to severe mitral regurgitation I34.0 Tobacco use Z72.0
[2024-01-24 20:37] LABS: ANTI-Xa, UFH(UnfractionatedHep 0.15 IU/ml (0.3-0.7)
[2024-01-24] MEDS: HEPARIN SOD (PORCINE) 1000 UNIT/ML IV ONE (21:58)
[2024-01-25 04:46] LABS: Basophils # (auto) 0.04 K/uL (0.00-0.20); Basophils % (auto) 0.7 %; Eosinophils # (auto) 0.07 K/uL (0.00-0.50); Eosinophils % (auto) 1.2 %; Hematocrit (blood only) 35.8 % (37.0-47.0); Hemoglobin 12.2 g/dl (12.0-16.0); Immature Granulocytes # (auto) 0.01 K/uL (0.01-0.20); Immature Granulocytes % (auto) 0.2 %; Lymphocytes # (auto) 1.34 K/uL (1.20-3.40); Lymphocytes % (auto) 22.5 %; Mean Corpuscular Hemoglobin 33.9 pg (25.0-34.0); Mean Corpuscular Hgb Conc 34.1 g/dL (32.0-36.0); Mean Corpuscular Volume 99.4 fL (80.0-100.0); Mean Platelet Volume 12.2 fL (9.4-12.4); Monocytes # (auto) 0.67 K/uL (0.11-0.59); Monocytes % (auto) 11.2 %; Neutrophils # (auto) 3.83 K/uL (1.40-6.50); Neutrophils % (auto) 64.2 %; Platelet Count 143 K/uL (130-400); RDW Coefficient of Variation 12.1 % (11.5-14.5); RDW Standard Deviation 44.6 fL (36.4-46.3); White Blood Count 5.96 K/ul (4.8-10.8)
[2024-01-25 04:59] LABS: Albumin Globulin Ratio 1.5 (0.9-2); Albumin Level 3.7 gm/dl (3.4-5.0); BUN Creatinine Ratio 40.9 (10-20); Calcium 8.8 mg/dl (8.6-10.3); Creatinine Clr Calc Pharmacy 110.3 ml/min; Est GFR (African American) 121.1 ml/min; Est GFR (Non-African American) 104.5 ml/min; Globulin 2.5 gm/dl (2.5-4.0); Potassium 3.4 mmol/L (3.5-5.1); Total Protein 6.2 gm/dl (6.0-8.3)
[2024-01-25 05:20] LABS: ANTI-Xa, UFH(UnfractionatedHep 0.32 IU/ml (0.3-0.7)
[2024-01-25 06:59] VITALS: RESP 18; TEMP 98.2
--- NOTE | 2024-01-25 07:44 | Discharge Summary ---
Discharge Summary Date of Service January 25, 2024 Principal Dx & Hospital Course #1 = Principal Diagnosis (1) Acute HFrEF (heart failure with reduced ejection fraction): Evidence of CHF seen on admission chest CTA which was negative for PE. She remains on parenteral Lasix. Monitor intake and output. Current echo reveals ejection fraction of 25% with evidence of distal anterior wall and apical hypokinesis. Chest CTA on admission negative for PE but positive for pulmonary edema, small pleural effusions, and emphysema. Monitor intake and output. (2) NSTEMI (non-ST elevated myocardial infarction): Distal anterior wall and apex. Left heart catheterization completed January 23 with 100% occlusion of proximal LAD, 99% ostial RCA, 80% ramus. She remains on a heparin drip. Coronary artery bypass grafting has been recommended by cardiology and arrangements have been made for transfer to [facility] for same. Appreciate cardiology consultation and recommendations. (3) Acute hypoxic respiratory failure: Supplemental oxygen per nasal cannula to maintain saturation greater than 90%. Wean off as tolerated. Oxygen requirements have decreased to 1 L/min (4) Transaminitis: AST and ALT are mildly elevated. This could be from passive hepatic congestion related to the CHF. Will follow. Hold off on starting statin until LFTs normalize. (5) Hypokalemia: Oral replacement. Serial labs (6) Moderate to severe mitral regurgitation: Seen on cardiac echo. Medical management for now. She may need surgical intervention at the time of coronary artery bypass grafting (7) Essential hypertension: Medical management (8) Tobacco use: Smoking cessation recommended Plan Transfer to [facility] today, January 24 Admission HPI Per Admitting Provider Ailin is a 69-year-old female with PMH of right shoulder replacement. She presented for SOB that began the evening of 01/20. She had a 2-hour flight yesterday and reports that her "sinuses are a mess", and that she lives in [facility]. She is here for her sister's . Patient developed acute onset of shortness of breath last night while laying in bed around midnight. She experienced SOB both at rest and with exertion. SOB was worse when she lay flat on her back. Alleviated by standing up and leaning forward. Patient has had sinus congestion over the past month, and reports that last night she felt like her bronchial tubes were "on fire". No history of heart failure to her knowledge. While she denies chest pain at this time, she does endorse pleuritic chest pain and reports it hurts to cough. She also endorses left lower rib pain, which is reproducible on palpation and she attributes it to the cough. She did started develop diarrhea last night; no blood in her stool. The stool is somewhat formed; not liquidy. She is still producing urine. She has new onset lower back pain x 2 weeks. No sick contacts. No supplemental oxygen at baseline. No CPAP at night. She is a current everyday tobacco cigarette smoker; 0.5 PPD. She declines nicotine patch on admission. No history of COPD, asthma, or emphysema to her knowledge. She does endorse daily alcohol use; 2 glasses of wine per day. No history of alcohol withdrawal or seizures. No PMH of NH, DVT/PE, stroke, or diabetes. The only medication she takes on the basis is amlodipine for blood pressure, and occasionally Celebrex for her shoulder. Patient does believe that she had an EKG change while at home in [place], but it is unclear why this was called an abnormal EKG; patient's PCP might of mentioned that she had a heart attack in the past. She follows with Sandhya. Regarding her penicillin allergy, she is unsure what happens when she takes penicillins; she denies history of anaphylaxis, hives, or throat closure; she believes it might have led to a rash and some arm swelling. Patient is tachycardic around 105 bpm on admission; SpO2 93% on 6L Oxymask. ED Course: Duoneb 3mL Zofran 4mg IV NSS 1000mL IV Cefepime 2000mg IV Toradol 15mg IV Nitro-Bid 2% ext Furosemide 20mg IV ROS: Patient endorses acute onset of SOB at rest and with exertion, chest palpitatio ns (which patient associated with difficulty breathing), productive cough (green phlegm), generalized weakness, sinus congestion, orthopnea, nausea, diarrhea (which started last night), and new lower back pain x 2 weeks. Patient denies fever, chills, night-sweats, dizziness, lightheadedness, MUNIZ, vomiting, neck stiffness/pain, photophobia, changes in vision, chest pain/pressure/tightness, hemoptysis, abdominal pain, vomiting, blood in the urine/stool, dysuria, changes in urinary production, or numbness/tingling in the arms or legs. Discharge Exam General-alert and oriented x3, no fever, no chills HEENT-head atraumatic and normocephalic, pupils equal and reactive to light, extraocular muscles intact Neck-no lymphadenopathy or thyromegaly, trachea midline Chest-clear to auscultation. No rales, wheezing or rhonchi Cardiac-regular rate and rhythm, normal S1 and S2 Abdomen-normal bowel sounds, no hepatosplenomegaly Extremities-no cyanosis, clubbing, or edema Neuro-cranial nerves II through XII intact, motor and sensory function within normal limits, strength symmetrical, no focal deficits Psych-normal affect, normal mood Discharge Plan Discharge Items Patient Disposition: Transfer Acute Care Hospital Reason For Visit: acute chf, takotsubo v pericarditis Discharge Diagnosis: Acute anteriorapical NH, acute systolic congestive heart failure, moderately severe mitral regurgitation, acute hypoxic respiratory failure Condition on Discharge: Serious Activity: As commented below Activity Comment: Bed rest Non-emergency contact: Primary Care Provider and Rehabilitation Construction Specialist Call non-emergency contact if: you have any medication questions and your symptoms worsen Follow-up/Referrals: PCP,NO [Primary Care Provider] - Diet: Regular and Heart Healthy Addtl Attending Provider Instructions: See primary care provider in [place] as soon as possible after discharge from [facility] Pending Studies at Discharge: No Stand-Alone Forms: My [facility] Skilled Items Patient informed of condition?: Yes DNR: No Discharge Level of Care: Other Communicable Disease: No Discharge Prognosis: Stable Lines: Peripheral IV Urinary Catheter: No Medications and DC Order Prescriptions: New furosemide 10 mg/mL Solution 40 mg IV [id number] Qty: 0 0RF Nitro-Bid 2 % Ointment 1 inch EXT Q6H Qty: 0 0RF aspirin 81 mg Tablet,Delayed Release (Dr/Ec) 81 mg PO QAM Qty: 0 0RF metoprolol tartrate 25 mg Tablet 25 mg PO BID Qty: 0 0RF cyclobenzaprine 5 mg Tablet 5 mg PO Q8H PRNQty: 0 0RF Continued celecoxib 200 mg capsule 200 mg PO DAILY Discontinued amlodipine 2.5 mg tablet 2.5 mg PO DAILY Discharge Orders: Discharge Order (Routine); Ordered 01/25/24 Ordered By: Clifford Stoll Admission Data Admit Date/Time: 08/17/24 12:03 Attending Provider: Clifford Stoll Admit Provider: Raffi Hernandez Primary Care Provider: PCP,NO Other Providers: Raffi Hernandez; Lester Abreu Hospital Stay Data Consultations 01/22/24 10:57 ED Decision to Admit Stat 01/22/24 11:20 ED Decision to Admit Stat 01/22/24 11:48 Consult Cardiology Stat Procedures Performed Operation Date: 01/24/24 12:10 Actual Procedures p Cath, Coronaries ONLY (no LV) - Mitchell Knox MD, PhD Diagnostic Imagining Performed 01/22/24 09:31 CT angio chest PE protocol Stat 01/24/24 12:05 CL Cath Imgs for PACS use only Routine Pending Results Patient Have Any Pending Studies at Discharge: No Discharge Instructions Given to Patient (Per Discharging Provider) See primary care provider in [place] as soon as possible after discharge from [facility] Total Time Total Time Spent Total Time Spent (In Minutes): 50 minutes Coding Level of Care Code 55227 INP/OBS DISCH >30 MIN Diagnoses Acute HFrEF (heart failure with reduced ejection fraction) I50.21 NSTEMI (non-ST elevated myocardial infarction) I21.4 Acute hypoxic respiratory failure J96.01 Transaminitis R74.01 Hypokalemia E87.6 Moderate to severe mitral regurgitation I34.0 Essential hypertension I10 Tobacco use Z72.0
[2024-01-25] MEDS: POTASSIUM CHLORIDE CRTAB 20 MEQ TABCR PO STA (08:01)
[2024-01-25 10:28] VITALS: O2SAT 97
--- NOTE | 2024-01-25 12:18 | Cardiology Progress Note ---
Date of Service January 25, 2024 Assessment & Plan (1) Acute apical myocardial infarction: (2) CAD (coronary artery disease): (3) Acute HFrEF (heart failure with reduced ejection fraction): (4) COPD (chronic obstructive pulmonary disease): (5) Moderate to severe mitral regurgitation: (6) Tobacco use: Plan 69-year-old woman with recent large apical infarct complicated by HFrEF with hypoxemia and moderate-severe mitral regurgitation, found on catheterization to have multivessel coronary artery disease (occluded LAD, 99% RCA) for which CT surgery evaluation is planned. She is doing well clinically and hemodynamically. Breathing improved after diuresis, lung exam and chest x-ray did not suggest major pulmonary edema, raising the likelihood that she has significant underlying COPD as a contributing factor to her initial hypoxemia. Continue intravenous heparin given subtotal right coronary artery findings. Add statin. Awaiting bed availability for transfer to [facility]. Admission and Anticipated Discharge Date Admission Date: January 22, 2024 Subjective Uneventful night, she slept well and notes that her breathing is better. No chest or back pain. No palpitations. Hemodynamics favorable. Telemetry showed sinus rhythm with no significant ectopy or dysrhythmias. Physical Exam Physical Exam: No distress. Afebrile. BP 100/67 mmHg. Pulse 74 bpm and regular. Respirations 18 and unlabored. Skin: no ecchymoses or generalized lesions. HEENT: unremarkable. Neck: JVP just above the clavicle at 90 degrees, no carotid bruits. Lungs: Moderately decreased breath sounds, few basilar crackles but generally clear. Cardiac: regular rhythm, normal S1-2, 2/6 holosystolic murmur heard only in the axilla, no diastolic murmur. Abdomen: benign. Extremities: no edema, pulses intact. Neurologic: normal affect and conversation, nonfocal. Results & Data Laboratory Results Potassium 3.4, sodium 135, BUN 18, creatinine 0.44. Hemoglobin 12.2. BNP from yesterday was 956. PG Care Time/CCT Total # of Minutes Spent Total Time Spent with Patient: Total time spent is greater than 50% in coordination of care (as documented) at patient's floor/unit and/or counseling patient: Coding Level of Care Code 24688 SUB INP/OBS CARE 2/35MIN Diagnoses Acute apical myocardial infarction I21.29 CAD (coronary artery disease) I25.10 Acute HFrEF (heart failure with reduced ejection fraction) I50.21 COPD (chronic obstructive pulmonary disease) J44.9 Moderate to severe mitral regurgitation I34.0 Tobacco use Z72.0
[2024-01-25 13:16] VITALS: BP 102/66; PULSE 82
--- NOTE | 2024-01-26 10:35 | Discharge Summary ---
Discharge Summary Date of Service January 26, 2024 Principal Dx & Hospital Course #1 = Principal Diagnosis (1) Acute HFrEF (heart failure with reduced ejection fraction): Evidence of CHF seen on admission chest CTA which was negative for PE. She remains on parenteral Lasix. Monitor intake and output. Current echo reveals ejection fraction of 25% with evidence of distal anterior wall and apical hypokinesis. Chest CTA on admission negative for PE but positive for pulmonary edema, small pleural effusions, and emphysema. Monitor intake and output. (2) NSTEMI (non-ST elevated myocardial infarction): Distal anterior wall and apex. Left heart catheterization completed January 23 with 100% occlusion of proximal LAD, 99% ostial RCA, 80% ramus. She remains on a heparin drip. Coronary artery bypass grafting has been recommended by cardiology and arrangements have been made for transfer to [facility] for same. Appreciate cardiology consultation and recommendations. (3) Acute hypoxic respiratory failure: Supplemental oxygen per nasal cannula to maintain saturation greater than 90%. Wean off as tolerated. Oxygen requirements have decreased to 1 L/min (4) Transaminitis: AST and ALT are mildly elevated. This could be from passive hepatic congestion related to the CHF. Will follow. Hold off on starting statin until LFTs normalize. (5) Hypokalemia: Oral replacement. Serial labs (6) Moderate to severe mitral regurgitation: Seen on cardiac echo. Medical management for now. She may need surgical intervention at the time of coronary artery bypass grafting (7) Essential hypertension: Medical management (8) Tobacco use: Smoking cessation recommended Plan Transfer to [facility] today, January 24 Admission HPI Per Admitting Provider Ailin is a 69-year-old female with PMH of right shoulder replacement. She presented for SOB that began the evening of 01/20. She had a 2-hour flight yesterday and reports that her "sinuses are a mess", and that she lives in [facility]. She is here for her sister's . Patient developed acute onset of shortness of breath last night while laying in bed around midnight. She experienced SOB both at rest and with exertion. SOB was worse when she lay flat on her back. Alleviated by standing up and leaning forward. Patient has had sinus congestion over the past month, and reports that last night she felt like her bronchial tubes were "on fire". No history of heart failure to her knowledge. While she denies chest pain at this time, she does endorse pleuritic chest pain and reports it hurts to cough. She also endorses left lower rib pain, which is reproducible on palpation and she attributes it to the cough. She did started develop diarrhea last night; no blood in her stool. The stool is somewhat formed; not liquidy. She is still producing urine. She has new onset lower back pain x 2 weeks. No sick contacts. No supplemental oxygen at baseline. No CPAP at night. She is a current everyday tobacco cigarette smoker; 0.5 PPD. She declines nicotine patch on admission. No history of COPD, asthma, or emphysema to her knowledge. She does endorse daily alcohol use; 2 glasses of wine per day. No history of alcohol withdrawal or seizures. No PMH of [place], DVT/PE, stroke, or diabetes. The only medication she takes on the basis is amlodipine for blood pressure, and occasionally Celebrex for her shoulder. Patient does believe that she had an EKG change while at home in [place], but it is unclear why this was called an abnormal EKG; patient's PCP might of mentioned that she had a heart attack in the past. She follows with [facility]. Regarding her penicillin allergy, she is unsure what happens when she takes penicillins; she denies history of anaphylaxis, hives, or throat closure; she believes it might have led to a rash and some arm swelling. Patient is tachycardic around 105 bpm on admission; SpO2 93% on 6L Oxymask. ED Course: Duoneb 3mL Zofran 4mg IV NSS 1000mL IV Cefepime 2000mg IV Toradol 15mg IV Nitro-Bid 2% ext Furosemide 20mg IV ROS: Patient endorses acute onset of SOB at rest and with exertion, chest palpitatio ns (which patient associated with difficulty breathing), productive cough (green phlegm), generalized weakness, sinus congestion, orthopnea, nausea, diarrhea (which started last night), and new lower back pain x 2 weeks. Patient denies fever, chills, night-sweats, dizziness, lightheadedness, MUNIZ, vomiting, neck stiffness/pain, photophobia, changes in vision, chest pain/pressure/tightness, hemoptysis, abdominal pain, vomiting, blood in the urine/stool, dysuria, changes in urinary production, or numbness/tingling in the arms or legs. Discharge Exam General-alert and oriented x3, no fever, no chills HEENT-head atraumatic and normocephalic, pupils equal and reactive to light, extraocular muscles intact Neck-no lymphadenopathy or thyromegaly, trachea midline Chest-clear to auscultation. No rales, wheezing or rhonchi Cardiac-regular rate and rhythm, normal S1 and S2 Abdomen-normal bowel sounds, no hepatosplenomegaly Extremities-no cyanosis, clubbing, or edema Neuro-cranial nerves II through XII intact, motor and sensory function within normal limits, strength symmetrical, no focal deficits Psych-normal affect, normal mood Discharge Plan Discharge Items Patient Disposition: Transfer Acute Care Hospital Reason For Visit: acute chf, takotsubo v pericarditis Discharge Diagnosis: Acute anteriorapical [place], acute systolic congestive heart failure, moderately severe mitral regurgitation, acute hypoxic respiratory failure Condition on Discharge: Serious Activity: As commented below Activity Comment: Bed rest Non-emergency contact: Primary Care Provider and Hospice Care Sales Consultant Call non-emergency contact if: you have any medication questions and your symptoms worsen Follow-up/Referrals: PCP,NO [Primary Care Provider] - Diet: Regular and Heart Healthy Addtl Attending Provider Instructions: See primary care provider in [place] as soon as possible after discharge from [facility] Pending Studies at Discharge: No Stand-Alone Forms: My [facility] Skilled Items Patient informed of condition?: Yes DNR: No Discharge Level of Care: Other Communicable Disease: No Discharge Prognosis: Stable Lines: Peripheral IV Urinary Catheter: No Medications and DC Order Prescriptions: New Nitro-Bid 2 % Ointment 1 inch EXT Q6H Qty: 0 0RF cyclobenzaprine 5 mg Tablet 5 mg PO Q8H PRNQty: 0 0RF metoprolol tartrate 25 mg Tablet 25 mg PO BID Qty: 0 0RF furosemide 10 mg/mL Solution 40 mg IV BID17 Qty: 0 0RF aspirin 81 mg Tablet,Delayed Release (Dr/Ec) 81 mg PO QAM Qty: 0 0RF Continued celecoxib 200 mg capsule 200 mg PO DAILY Discontinued amlodipine 2.5 mg tablet 2.5 mg PO DAILY Discharge Orders: Discharge Order (Routine); Ordered 01/25/24 Ordered By: Clifford Stoll Admission Data Admit Date/Time: 08/17/24 12:03 Attending Provider: Clifford Stoll Admit Provider: Raffi Hernandez Primary Care Provider: PCP,NO Other Providers: Raffi Hernandez; Lester Abreu Other Interventions: Discharge Summary Assessment (RN) Last Done: 01/25/24 13:14 Hospital Stay Data Consultations 01/22/24 10:57 ED Decision to Admit Stat 01/22/24 11:20 ED Decision to Admit Stat 01/22/24 11:48 Consult Cardiology Stat 01/25/24 10:44 Burn CD for patient Stat Procedures Performed Operation Date: 01/24/24 12:10 Actual Procedures p Cath, Coronaries ONLY (no LV) - Mitchell Knox MD, PhD Diagnostic Imagining Performed 01/22/24 09:31 CT angio chest PE protocol Stat 01/24/24 12:05 CL Cath Imgs for PACS use only Routine Pending Results Patient Have Any Pending Studies at Discharge: No Discharge Instructions Given to Patient (Per Discharging Provider) See primary care provider in [place] as soon as possible after discharge from [facility] Total Time Total Time Spent Total Time Spent (In Minutes): 45 minutes Coding Level of Care Code 74334 INP/OBS DISCH >30 MIN Diagnoses Acute HFrEF (heart failure with reduced ejection fraction) I50.21 NSTEMI (non-ST elevated myocardial infarction) I21.4 Acute hypoxic respiratory failure J96.01 Transaminitis R74.01 Hypokalemia E87.6 Moderate to severe mitral regurgitation I34.0 Essential hypertension I10 Tobacco use Z72.0
== END 2024-01-25 14:27 | disposition short-term general hospital (02) | DRG 280 ==
LOC: ED 09:07 → SUATTDRO 12:03 → 2S 12:03
PROC: CLB.CCO (2024-01-24 12:10)